=== PATIENT | female | born 1955 | race African-American/Black ===

== ENCOUNTER 2017-05-03 12:40 | Inpatient (IN) | payer MEDICARE, MEDICAID ==
[~2017-05-03] VITALS: Ht 170.2 cm; Wt 92.1 kg
[~2017-05-03 12:40] MED LIST: ACET-1465 PO; ATOR20TA65 PO; BENA1TAB19 PO; CLON0.1T PO; FAMO20TA8 PO; FLUT1DIS3 IH; HYDR-3927 PO; INSU100I7 SQ; IPRA3AMP9 INH; LORA0.5T2 PO; ONDA4TAB5 PO; SEVE800T8 PO; [UNRECOGNIZED DRUG - CODE] PO
[2017-05-03] MEDS ORDERED: ONDANSETRON HCL 4MG/2ML VIAL IV STA (13:20)
[2017-05-03] MEDS ORDERED: GENTAMICIN 80MG PREMIX 100 ML IV ONE (14:45)
[2017-05-03] MEDS ORDERED: VANCOMYCIN 1 G PREMIX 200 ML IV SCH (14:45)
[2017-05-03 15:50] LABS: BASOPHILS % 0.9 % (0.0-2.0); EOSINOPHILS % 0.9 % (0.0-5.0); HEMATOCRIT. 30.2 % (36.0-48.0); HEMOGLOBIN. 10.2 g/dL (12.0-16.0); LYMPHOCYTES % 17.4 % (20.0-50.0); MEAN CORPUSCULAR HEMOGLOBIN 30.3 pg (28.0-32.0); MEAN CORPUSCULAR VOLUME 89.2 fL (81.0-99.0); MEAN PLATELET VOLUME 7.6 fl (7.4-10.4); MONOCYTES % 6.7 % (2.0-8.0); NEUTROPHILS % 74.1 % (40.0-76.0); PLATELET 250 x1000/uL (130-400); RED BLOOD CELL COUNT 3.38 mill/uL (4.2-5.4); RED CELL DISTRIBUTION WIDTH 15.3 % (11.6-14.6)
[2017-05-03 15:56] LABS: INR 1.1; PARTIAL THROMBOPLASTIN TIME 33.1 sec (24.0-34.0); PROTHROMBIN TIME 11.5 sec
[2017-05-03 15:57] LABS: CARBON DIOXIDE 35 mEq/L (21-32); CHLORIDE 96 mEq/L (98-107)
[2017-05-03 16:04] LABS: TROPONIN I < 0.02 ng/mL (0.00-0.04)
[2017-05-03 18:50] LABS: CLARITY URINE CLOUDY (CLEAR); COLOR URINE YELLOW (YELLOW); GLUCOSE URINE NEGATIVE (NEGATIVE); KETONES URINE NEGATIVE (NEGATIVE); LEUKOCYTE ESTERASE URINE 3+ (NEGATIVE); NITRITE URINE NEGATIVE (NEGATIVE); OCCULT BLOOD URINE 2+ (NEGATIVE); PH URINE >=9.0 (4.5-8.0); PROTEIN URINE 2+ (NEGATIVE); SPECIFIC GRAVITY URINE 1.009 (1.005-1.030); UROBILINOGEN URINE 0.2 E.U./dL (0.2-1.0)
[2017-05-03 20:00] VITALS: BP 112/64
[2017-05-03] MEDS ORDERED: DESMOPRESSIN ACETATE 26 MCG in SODIUM CHLORIDE 0.9% 50 ML IV NR (21:00)
[2017-05-03 22:30] VITALS: BP 151/68
[2017-05-04] VITALS: BP 112/64
[2017-05-04 01:52] VITALS: BP 151/68
[2017-05-04 04:00] VITALS: BP 137/63
[2017-05-04 07:46] VITALS: BP 119/51
[2017-05-04] MEDS ORDERED: DEXTROSE 50% WATER 50ML SYRINGE IV PRN (08:00)
[2017-05-04] MEDS ORDERED: ACETAMINOPHEN 325MG TABLET PO PRN (08:15)
[2017-05-04] MEDS ORDERED: IPRATROPIUM/ALBUTEROL 0.5-3(2.5)MG/3ML NEB HHN PRN (08:15)
[2017-05-04] MEDS ORDERED: LORAZEPAM 0.5MG TABLET PO PRN (08:15)
[2017-05-04 08:50] LABS: BASOPHILS % 0.7 % (0.0-2.0); EOSINOPHILS % 2.2 % (0.0-5.0); HEMATOCRIT. 28.7 % (36.0-48.0); HEMOGLOBIN. 9.4 g/dL (12.0-16.0); MEAN CORPUSCULAR HEMOGLOBIN 29.5 pg (28.0-32.0); MEAN CORPUSCULAR VOLUME 89.8 fL (81.0-99.0); MEAN PLATELET VOLUME 7.7 fl (7.4-10.4); NEUTROPHILS % 73.1 % (40.0-76.0); PLATELET 244 x1000/uL (130-400); RED CELL DISTRIBUTION WIDTH 15.3 % (11.6-14.6)
[2017-05-04 08:58] LABS: INR 1.1; PARTIAL THROMBOPLASTIN TIME 27.3 sec (24.0-34.0); PROTHROMBIN TIME 11.4 sec
[2017-05-04] MEDS: BENAZEPRIL 20MG TABLET PO SCH (09:00)
[2017-05-04] MEDS ORDERED: FLUTICASONE PROPIONATE 50MCG/SPRAY BOTTLE BOTHNSTRLS SCH (09:00)
[2017-05-04] MEDS: AMLODIPINE 10MG TABLET PO SCH ×2 (09:00→14:52)
[2017-05-04 09:15] LABS: PHOSPHORUS 4.5 mg/dL (2.5-4.9)
[2017-05-04] MEDS: FAMOTIDINE 20MG TABLET PO SCH (09:19)
[2017-05-04] MEDS: BLOOD SUGAR DIAGNOSTIC STRIP TEST SCH ×3 (12:31→20:25)
[2017-05-04] MEDS: INSULIN LISPRO 100 UNITS/ML SUBCUT SCH ×3 (12:31→20:27)
[2017-05-04] MEDS: SEVELAMER CARBONATE 800 MG TABLET PO SCH ×2 (12:40→18:25)
[2017-05-04] MEDS: ONDANSETRON HCL 4MG/2ML VIAL IV PRN ×2 (13:23→20:39)
[2017-05-04] MEDS ORDERED: VANCOMYCIN 1,750 MG in DEXT 5% WATER 500 ML IV NR (16:00)
[2017-05-04 16:13] VITALS: BP 167/79
[2017-05-04] MEDS: ASPIRIN 81MG EC TABLET PO SCH (18:25)
[2017-05-04] MEDS: CLOPIDOGREL 75MG TABLET PO SCH (18:25)
[2017-05-04 20:00] VITALS: BP 179/84
[2017-05-04] MEDS: ATORVASTATIN CALCIUM 20MG TABLET PO SCH (20:39)
[2017-05-04] MEDS: CLONIDINE 0.1MG TABLET PO PRN (20:39)
[2017-05-04] MEDS: EPOETIN ALFA 10000UNITS/ML VIAL SUBCUT SCH (21:56)
[2017-05-05] VITALS: BP 107/61
[2017-05-05 04:00] VITALS: BP 144/70
[2017-05-05 06:23] LABS: BASOPHILS % 0.9 % (0.0-2.0); EOSINOPHILS % 3.7 % (0.0-5.0); HEMATOCRIT. 28.4 % (36.0-48.0); HEMOGLOBIN. 9.2 g/dL (12.0-16.0); MEAN CORPUSCULAR HEMOGLOBIN 29.6 pg (28.0-32.0); MEAN CORPUSCULAR VOLUME 91.4 fL (81.0-99.0); MEAN PLATELET VOLUME 7.8 fl (7.4-10.4); MONOCYTES % 8.4 % (2.0-8.0); PLATELET 238 x1000/uL (130-400); RED CELL DISTRIBUTION WIDTH 15.8 % (11.6-14.6)
[2017-05-05] MEDS: INSULIN LISPRO 100 UNITS/ML SUBCUT SCH ×4 (06:43→20:46)
[2017-05-05] MEDS: BLOOD SUGAR DIAGNOSTIC STRIP TEST SCH ×4 (06:43→20:20)
[2017-05-05 06:47] LABS: CHLORIDE 104 mEq/L (98-107)
[2017-05-05 06:52] LABS: CARBON DIOXIDE 27 mEq/L (21-32); CREATINE KINASE 18 IU/L (26-192); CREATINE KINASE MB FRACTION 0.6 ng/mL (0.5-3.6); HDL CHOLESTEROL 47 mg/dL (40-59); LDL CHOLESTEROL 32 mg/dL (5-100); TROPONIN I < 0.02 ng/mL (0.00-0.04)
[2017-05-05 07:35] VITALS: BP 117/66
[2017-05-05] MEDS: SEVELAMER CARBONATE 800 MG TABLET PO SCH ×3 (07:50→17:12)
[2017-05-05] MEDS: CLOPIDOGREL 75MG TABLET PO SCH (07:50)
[2017-05-05] MEDS: ASPIRIN 81MG EC TABLET PO SCH ×2 (07:50→16:39)
[2017-05-05] MEDS: AMLODIPINE 10MG TABLET PO SCH (07:51)
[2017-05-05] MEDS: FAMOTIDINE 20MG TABLET PO SCH (07:51)
[2017-05-05] MEDS: BENAZEPRIL 20MG TABLET PO SCH (07:51)
[2017-05-05 12:11] VITALS: BP 116/61
[2017-05-05] MEDS: HYDROCODONE/ACETAMINOPHEN 5/325MG TABLET PO PRN ×2 (14:01→20:52)
[2017-05-05] MEDS ORDERED: ZOSYN IVPB XX SCH (14:30)
[2017-05-05 16:03] VITALS: BP 121/73
[2017-05-05] MEDS: PIPERACILLIN/TAZ 3.375G PREMIX 50 ML IV SCH ×2 (16:39→23:24)
[2017-05-05 20:00] VITALS: BP 126/70
[2017-05-05] MEDS: ATORVASTATIN CALCIUM 20MG TABLET PO SCH (20:45)
[2017-05-06] VITALS: BP 115/64
[2017-05-06 04:00] VITALS: BP 125/70
[2017-05-06] MEDS: BLOOD SUGAR DIAGNOSTIC STRIP TEST SCH ×4 (06:15→21:25)
[2017-05-06] MEDS: INSULIN LISPRO 100 UNITS/ML SUBCUT SCH ×4 (06:15→21:28)
[2017-05-06 06:49] LABS: BASOPHILS % 0.7 % (0.0-2.0); EOSINOPHILS % 5.2 % (0.0-5.0); HEMATOCRIT. 26.7 % (36.0-48.0); HEMOGLOBIN. 8.7 g/dL (12.0-16.0); LYMPHOCYTES % 21.3 % (20.0-50.0); MEAN CORPUSCULAR HEMOGLOBIN 29.6 pg (28.0-32.0); MEAN PLATELET VOLUME 7.8 fl (7.4-10.4); MONOCYTES % 9.2 % (2.0-8.0); NEUTROPHILS % 63.6 % (40.0-76.0); PLATELET 211 x1000/uL (130-400); RED BLOOD CELL COUNT 2.93 mill/uL (4.2-5.4); RED CELL DISTRIBUTION WIDTH 15.7 % (11.6-14.6)
[2017-05-06 08:00] VITALS: BP 115/55
[2017-05-06 08:30] LABS: CARBON DIOXIDE 27 mEq/L (21-32); CHLORIDE 106 mEq/L (98-107); PHOSPHORUS 3.6 mg/dL (2.5-4.9)
[2017-05-06] MEDS: PIPERACILLIN/TAZ 3.375G PREMIX 50 ML IV SCH (08:34)
[2017-05-06] MEDS: SEVELAMER CARBONATE 800 MG TABLET PO SCH ×3 (08:37→16:35)
[2017-05-06] MEDS: CLOPIDOGREL 75MG TABLET PO SCH (08:38)
[2017-05-06] MEDS: BENAZEPRIL 20MG TABLET PO SCH (08:38)
[2017-05-06] MEDS: FAMOTIDINE 20MG TABLET PO SCH (08:39)
[2017-05-06] MEDS: AMLODIPINE 10MG TABLET PO SCH (08:39)
[2017-05-06] MEDS: ASPIRIN 81MG EC TABLET PO SCH ×2 (08:39→16:35)
[2017-05-06 12:00] VITALS: BP 117/57
[2017-05-06] MEDS: PIPERACILLIN/TAZ 2.25G PREMIX 50 ML IV SCH ×2 (15:05→21:26)
[2017-05-06 16:00] VITALS: BP 116/57
[2017-05-06 17:36] LABS: CLARITY URINE TURBID (CLEAR); COLOR URINE YELLOW (YELLOW); GLUCOSE URINE NEGATIVE (NEGATIVE); KETONES URINE NEGATIVE (NEGATIVE); LEUKOCYTE ESTERASE URINE 3+ (NEGATIVE); NITRITE URINE NEGATIVE (NEGATIVE); OCCULT BLOOD URINE 1+ (NEGATIVE); PH URINE 7.5 (4.5-8.0); PROTEIN URINE 3+ (NEGATIVE); SPECIFIC GRAVITY URINE 1.017 (1.005-1.030); UROBILINOGEN URINE 0.2 E.U./dL (0.2-1.0)
[2017-05-06 20:00] VITALS: BP 149/79
[2017-05-06] MEDS: ATORVASTATIN CALCIUM 20MG TABLET PO SCH (21:26)
[2017-05-07] VITALS: BP 136/65
[2017-05-07 04:00] VITALS: BP 139/76
[2017-05-07] MEDS: BLOOD SUGAR DIAGNOSTIC STRIP TEST SCH ×4 (06:50→20:34)
[2017-05-07] MEDS: INSULIN LISPRO 100 UNITS/ML SUBCUT SCH ×4 (06:51→20:28)
[2017-05-07 07:09] LABS: BASOPHILS % 0.6 % (0.0-2.0); EOSINOPHILS % 5.3 % (0.0-5.0); HEMATOCRIT. 26.5 % (36.0-48.0); HEMOGLOBIN. 8.8 g/dL (12.0-16.0); LYMPHOCYTES % 18.6 % (20.0-50.0); MEAN CORPUSCULAR HEMOGLOBIN 29.9 pg (28.0-32.0); MEAN CORPUSCULAR VOLUME 89.8 fL (81.0-99.0); MEAN PLATELET VOLUME 7.9 fl (7.4-10.4); NEUTROPHILS % 68.5 % (40.0-76.0); PLATELET 218 x1000/uL (130-400); RED BLOOD CELL COUNT 2.95 mill/uL (4.2-5.4); RED CELL DISTRIBUTION WIDTH 15.4 % (11.6-14.6)
[2017-05-07 08:00] VITALS: BP 150/59
[2017-05-07] MEDS: SEVELAMER CARBONATE 800 MG TABLET PO SCH ×3 (08:57→17:57)
[2017-05-07] MEDS: FAMOTIDINE 20MG TABLET PO SCH (11:11)
[2017-05-07] MEDS: ASPIRIN 81MG EC TABLET PO SCH ×2 (11:11→17:00)
[2017-05-07] MEDS: AMLODIPINE 10MG TABLET PO SCH (11:11)
[2017-05-07] MEDS: CLOPIDOGREL 75MG TABLET PO SCH (11:12)
[2017-05-07] MEDS: BENAZEPRIL 20MG TABLET PO SCH (11:13)
[2017-05-07] MEDS: PIPERACILLIN/TAZ 2.25G PREMIX 50 ML IV SCH (11:17)
[2017-05-07 12:00] VITALS: BP 143/83
[2017-05-07 16:00] VITALS: BP 156/81
[2017-05-07 16:05] VITALS: BP 128/73
[2017-05-07] MEDS: CLONIDINE 0.1MG TABLET PO PRN (18:14)
[2017-05-07] MEDS: ONDANSETRON HCL 4MG/2ML VIAL IV PRN (18:14)
[2017-05-07] MEDS: ATORVASTATIN CALCIUM 20MG TABLET PO SCH (20:26)
[2017-05-07] MEDS: EPOETIN ALFA 10000UNITS/ML VIAL SUBCUT SCH (20:29)
[2017-05-07] MEDS ORDERED: AMPICILLIN TRIHYDRATE PO SCH (21:00)
== END 2017-05-07 21:35 | disposition home health service (06) | DRG 391 ==
LOC: ER 12:58 → 8WST 14:44 → EDBEDREQ 14:59 → CANRESERV 16:49 → ENRESERV 16:49
PROVIDERS: ADMIT Internal Medicine; ATTEND Internal Medicine
PROC: 02HV33Z Insertion of Infusion Device into Superior Vena Cava, Percutaneous Approach (ICD-10-PCS; principal; 2017-05-03)
PROC: B5181ZA Fluoroscopy of Superior Vena Cava using Low Osmolar Contrast, Guidance (ICD-10-PCS; 2017-05-03)
PROC: B548ZZA Ultrasonography of Superior Vena Cava, Guidance (ICD-10-PCS; 2017-05-03)
PROC: 5A1D60Z (ICD-10-PCS; 2017-05-04)
DX: K52.9 Noninfective gastroenteritis and colitis, unspecified (principal); N18.6 End stage renal disease; I13.11 Hypertensive heart and chronic kidney disease without heart failure, with stage 5 chronic kidney disease, or end stage renal disease; N39.0 Urinary tract infection, site not specified; E66.01 Morbid (severe) obesity due to excess calories; Z99.2 Dependence on renal dialysis; G83.10 Monoplegia of lower limb affecting unspecified side; D63.8 Anemia in other chronic diseases classified elsewhere; E11.22 Type 2 diabetes mellitus with diabetic chronic kidney disease; M19.90 Unspecified osteoarthritis, unspecified site; I95.9 Hypotension, unspecified; E11.51 Type 2 diabetes mellitus with diabetic peripheral angiopathy without gangrene; K21.9 Gastro-esophageal reflux disease without esophagitis; E78.00 Pure hypercholesterolemia, unspecified; E11.40 Type 2 diabetes mellitus with diabetic neuropathy, unspecified; J44.9 Chronic obstructive pulmonary disease, unspecified; G89.29 Other chronic pain; M54.9 Dorsalgia, unspecified; M25.562 Pain in left knee; M10.9 Gout, unspecified; F41.9 Anxiety disorder, unspecified; E78.5 Hyperlipidemia, unspecified; I25.10 Atherosclerotic heart disease of native coronary artery without angina pectoris; I25.2 Old myocardial infarction; Z79.4 Long term (current) use of insulin; Z79.82 Long term (current) use of aspirin; Z87.11 Personal history of peptic ulcer disease; Z87.891 Personal history of nicotine dependence; Z95.5 Presence of coronary angioplasty implant and graft; Z99.3 Dependence on wheelchair; Z87.81 Personal history of (healed) traumatic fracture; Z68.31 Body mass index [BMI] 31.0-31.9, adult; Y83.8 Other surgical procedures as the cause of abnormal reaction of the patient, or of later complication, without mention of misadventure at the time of the procedure; Y92.89 Other specified places as the place of occurrence of the external cause
CPT/HCPCS: 36415; 36569; 71010; 76937; 77001; 80048; 80053; 80061; 80069; 80076; 80202; 81001; 82550; 82553; 82962; 83605; 83690; 83735; 84100; 84484; 84550; 85025; 85379; 85610; 85651; 85730; 87040; 87077; 87086; 93005; 93970; 96365; 96368; 96375; 99285; C1725; J0885; J1580; J1815; J2405; J2543; J2597; J3370; J7030; J7040; J7060

== ENCOUNTER → 2017-09-20 | Outpatient (CLI) | payer MEDICARE, MEDICAID ==
[~2017-09-20] MED LIST changes: +AMLO-337 PO; +DUONEB3 ML INH; -HYDR-3927 PO; +HYDR-4001 PO; -IPRA3AMP9 INH; -[UNRECOGNIZED DRUG - CODE] PO
== END | disposition home or self-care (01) ==
LOC: MAMMO 09:30
PROVIDERS: ATTEND Specialist
DX: Z12.31 Encounter for screening mammogram for malignant neoplasm of breast (principal)
CPT/HCPCS: G0202

== ENCOUNTER → 2019-01-28 | Outpatient (CLI) | payer MEDICARE, MEDICAID | END | disposition home or self-care (01) | LOC: RAD 10:54 | PROVIDERS: ATTEND Specialist | DX: Z01.818 Encounter for other preprocedural examination (principal); I11.9 Hypertensive heart disease without heart failure; R91.8 Other nonspecific abnormal finding of lung field | CPT/HCPCS: 71045 ==

== ENCOUNTER 2019-02-17 05:52 | Inpatient (IN) | payer MEDICARE, MEDICAID ==
[~2019-02-17] VITALS: Ht 165.1 cm; Wt 109.8 kg
[2019-02-17] VITALS (12 sets, daily range): BP systolic 79–110; BP diastolic 62–72
[2019-02-17] MEDS ORDERED: SODIUM CHLORIDE 0.9% 500 ML IV ONE (07:00)
[2019-02-17] MEDS ORDERED: BUPIVACAINE/EPINEPH/PF 0.25%/0.0005 10ML ONE (09:24)
[2019-02-17] MEDS ORDERED: NORMAL SALINE 0.9% 10 ML SYR ONE (09:25)
[2019-02-17] MEDS ORDERED: BACITRACIN 50,000 UNITS/VIAL ONE (09:25)
[2019-02-17] MEDS ORDERED: ROPIVACAINE HCL 10MG/ML 20 ML VIAL EPI ONE (09:47)
[2019-02-17] MEDS ORDERED: ACETAMINOPHEN 325MG TABLET PO PRN (10:15)
[2019-02-17] MEDS ORDERED: ONDANSETRON HCL 4MG TABLET PO PRN (10:15)
[2019-02-17] MEDS ORDERED: HYDROCODONE/ACETAMINOPHEN 5/325MG TABLET PO PRN ×2 (10:15)
[2019-02-17] MEDS ORDERED: ALBUTEROL 90MCG/PUFF 17GM INHALER INH ONE (11:37)
[2019-02-17] MEDS ORDERED: RACEPINEPHRINE 2.25% 0.5ML NEB VIAL INH PRN (11:45)
[2019-02-17] MEDS ORDERED: ALBUTEROL (0.083%) 2.5MG/3ML NEB ONE (13:02)
[2019-02-17 17:39] LABS: BG BASE EXCESS 2.4 mmol/L (-2.0-2.0); BG CARBOXYHEMOGLOBIN 0.7 % (0.5-1.5); BG DEOXYHEMOGLOBIN 2.2 % (0.0-5.0); BG FRACTION INSPIRED OXYGEN 70; BG HCO3 ACT 27.6 mmol/L (22.0-26.0); BG METHEMOGLOBIN 0.2 % (0.0-1.5); BG OXYGEN SATURATION 97.8 % (92.0-98.5); BG OXYHEMOGLOBIN 96.9 % (94.0-97.0); BG PH 7.405 (7.350-7.450); BG PO2 103.4 mmHg (75.0-100.0); BG PRESSURE SUPPORT 10; BG SAMPLE SITE LEFT RADIAL; BG TIDAL VOLUME(mL) 500 mL; BG TOTAL HEMOGLOBIN 12.2 g/dL (12.0-18.0); BG VENT MODE VENT - SIMV; BG VENT RATE 12 set
[2019-02-17] MEDS ORDERED: SODIUM CHLORIDE 0.9% 1,000 ML IV ONE (19:36)
[2019-02-17] MEDS ORDERED: ONDANSETRON HCL 4MG/2ML INJ IV PRN (19:45)
[2019-02-17] MEDS ORDERED: MORPHINE SULFATE 4 MG/ML CPJ (NOT FOR IM USE) IV PRN (19:45)
[2019-02-17] MEDS ORDERED: HYDROMORPHONE HCL/PF 2MG/ML CPJ IV PRN (19:45)
[2019-02-17] MEDS ORDERED: PROPOFOL 10MG/ML 100ML 100 ML IV PRN (20:30)
[2019-02-17] MEDS ORDERED: ALBUTEROL (0.083%) 2.5MG/3ML NEB HHN PRN (20:30)
[2019-02-17] MEDS: DOCUSATE SODIUM 100MG CAPSULE PO SCH (20:43)
[2019-02-17] MEDS: MORPHINE SULFATE 4 MG/ML CPJ (NOT FOR IM USE) IV PRN (20:49)
[2019-02-17] MEDS: IPRATROPIUM/ALBUTEROL 0.5-3(2.5)MG/3ML NEB HHN SCH (20:59)
[2019-02-17] MEDS ORDERED: IPRATROPIUM/ALBUTEROL 0.5-3(2.5)MG/3ML NEB HHN PRN (21:00)
[2019-02-17 21:29] LABS: HEMOGLOBIN. 11.1 g/dL (12.0-16.0); MEAN CORPUSCULAR HEMOGLOBIN 32.1 pg (28.0-32.0); MEAN CORPUSCULAR VOLUME 95.5 fL (81.0-99.0); MEAN PLATELET VOLUME 8.2 fl (7.4-10.4); PLATELET 156 x1000/uL (130-400); RED BLOOD CELL COUNT 3.45 mill/uL (4.2-5.4); RED CELL DISTRIBUTION WIDTH 15.1 % (11.6-14.6)
[2019-02-17 21:48] LABS: CHLORIDE 98 mEq/L (98-107)
[2019-02-17 21:58] LABS: PLATELET ESTIMATE NORMAL
[2019-02-17] MEDS: PIPERACILLIN/TAZ 2.25G PREMIX 50 ML IV SCH (22:59)
[2019-02-18] VITALS (47 sets, daily range): BP systolic 87–143; BP diastolic 33–77
[2019-02-18] MEDS: PIPERACILLIN/TAZ 2.25G PREMIX 50 ML IV SCH ×3 (06:31→22:11)
[2019-02-18] MEDS: MORPHINE SULFATE 4 MG/ML CPJ (NOT FOR IM USE) IV PRN ×2 (07:50→13:31)
[2019-02-18] MEDS: IPRATROPIUM/ALBUTEROL 0.5-3(2.5)MG/3ML NEB HHN SCH ×4 (08:32→21:05)
[2019-02-18] MEDS: DOCUSATE SODIUM 100MG CAPSULE PO SCH ×2 (09:00→17:00)
[2019-02-18] MEDS: METHYLPREDNISOLONE SOD SUCC 40 MG/ML VIAL IV SCH (19:13)
[2019-02-19] VITALS (76 sets, daily range): BP systolic 60–145; BP diastolic 23–103
[2019-02-19] MEDS: IPRATROPIUM/ALBUTEROL 0.5-3(2.5)MG/3ML NEB HHN SCH ×5 (00:28→19:59)
[2019-02-19] MEDS: METHYLPREDNISOLONE SOD SUCC 40 MG/ML VIAL IV SCH ×3 (02:59→18:36)
[2019-02-19] MEDS: PIPERACILLIN/TAZ 2.25G PREMIX 50 ML IV SCH ×3 (05:38→22:09)
[2019-02-19] MEDS: MORPHINE SULFATE 4 MG/ML CPJ (NOT FOR IM USE) IV PRN ×3 (06:49→23:21)
[2019-02-19] MEDS ORDERED: RACEPINEPHRINE 2.25% 0.5ML NEB VIAL HHN SCH (08:30)
[2019-02-19] MEDS ORDERED: DEXTROSE 50% WATER 50ML SYRINGE IV PRN (09:00)
[2019-02-19] MEDS: DOCUSATE SODIUM 100MG CAPSULE PO SCH ×2 (09:00→17:00)
[2019-02-19] MEDS: BLOOD SUGAR DIAGNOSTIC STRIP TEST SCH ×4 (09:17→22:18)
[2019-02-19] MEDS: INSULIN LISPRO 100 UNITS/ML SUBCUT SCH ×4 (09:18→22:20)
[2019-02-19 15:15] LABS: CHLORIDE 95 mEq/L (98-107); HEMATOCRIT. 32.2 % (36.0-48.0); HEMOGLOBIN. 10.7 g/dL (12.0-16.0); MEAN CORPUSCULAR HEMOGLOBIN 32.3 pg (28.0-32.0); MEAN CORPUSCULAR VOLUME 96.8 fL (81.0-99.0); MEAN PLATELET VOLUME 8.6 fl (7.4-10.4); PLATELET 171 x1000/uL (130-400); RED BLOOD CELL COUNT 3.32 mill/uL (4.2-5.4); RED CELL DISTRIBUTION WIDTH 15.2 % (11.6-14.6)
[2019-02-19 15:59] LABS: PLATELET ESTIMATE NORMAL
[2019-02-20] VITALS (25 sets, daily range): BP systolic 86–152; BP diastolic 40–97
[2019-02-20] MEDS: METHYLPREDNISOLONE SOD SUCC 40 MG/ML VIAL IV SCH ×2 (02:25→08:59)
[2019-02-20] MEDS: BLOOD SUGAR DIAGNOSTIC STRIP TEST SCH ×4 (06:07→20:46)
[2019-02-20] MEDS: PIPERACILLIN/TAZ 2.25G PREMIX 50 ML IV SCH ×3 (06:07→21:21)
[2019-02-20] MEDS: INSULIN LISPRO 100 UNITS/ML SUBCUT SCH ×4 (06:16→21:40)
[2019-02-20] MEDS: IPRATROPIUM/ALBUTEROL 0.5-3(2.5)MG/3ML NEB HHN SCH ×4 (07:47→21:04)
[2019-02-20] MEDS: DOCUSATE SODIUM 100MG CAPSULE PO SCH ×2 (08:59→17:00)
[2019-02-20] MEDS: MORPHINE SULFATE 4 MG/ML CPJ (NOT FOR IM USE) IV PRN ×2 (09:30→09:33)
[2019-02-20] MEDS ORDERED: METHYLPREDNISOLONE SOD SUCC 40 MG/ML VIAL IV SCH (18:00)
[2019-02-21] VITALS: BP 112/62
[2019-02-21] MEDS: PREDNISONE 20MG TABLET PO SCH ×2 (03:06→14:02)
[2019-02-21 04:00] VITALS: BP 108/62
[2019-02-21] MEDS: PIPERACILLIN/TAZ 2.25G PREMIX 50 ML IV SCH (06:38)
[2019-02-21] MEDS: BLOOD SUGAR DIAGNOSTIC STRIP TEST SCH (07:02)
[2019-02-21] MEDS: DOCUSATE SODIUM 100MG CAPSULE PO SCH (08:53)
[2019-02-21] MEDS: INSULIN LISPRO 100 UNITS/ML SUBCUT SCH (08:58)
[2019-02-21] MEDS: IPRATROPIUM/ALBUTEROL 0.5-3(2.5)MG/3ML NEB HHN SCH ×2 (09:21→12:30)
[2019-02-21 09:58] VITALS: BP 106/61
[2019-02-21 12:00] VITALS: BP 111/63
[2019-02-21 13:28] VITALS: BP 111/63
[2019-02-21] MEDS ORDERED: CEFTRIAXONE 1 G PREMIX 50 ML IV SCH (17:00)
[2019-04-10] MEDS ORDERED: METR-167 MT (15:37)
[2019-04-10] MEDS ORDERED: LEVO250T58 MT (15:37)
[2019-04-10] MEDS ORDERED: CHOL500010 MT (15:37)
== END 2019-02-21 14:12 | disposition home health service (06) | DRG 981 ==
LOC: OR 05:52 → MICUNO 20:38 → 6EST 02-20 16:12
PROVIDERS: ADMIT Internal Medicine; ATTEND Orthopaedic Surgery
PROC: 5A1945Z Respiratory Ventilation, 24-96 Consecutive Hours (ICD-10-PCS; principal; 2019-02-17)
PROC: 01S40ZZ Reposition Ulnar Nerve, Open Approach (ICD-10-PCS; 2019-02-17)
PROC: 5A1D70Z Performance of Urinary Filtration, Intermittent, Less than 6 Hours Per Day (ICD-10-PCS; 2019-02-19)
PROC: 5A1D70Z Performance of Urinary Filtration, Intermittent, Less than 6 Hours Per Day (ICD-10-PCS; 2019-02-21)
DX: J95.821 Acute postprocedural respiratory failure (principal); N18.6 End stage renal disease; I13.2 Hypertensive heart and chronic kidney disease with heart failure and with stage 5 chronic kidney disease, or end stage renal disease; Z68.41 Body mass index [BMI] 40.0-44.9, adult; G56.23 Lesion of ulnar nerve, bilateral upper limbs; E87.6 Hypokalemia; M13.0 Polyarthritis, unspecified; I25.10 Atherosclerotic heart disease of native coronary artery without angina pectoris; E11.319 Type 2 diabetes mellitus with unspecified diabetic retinopathy without macular edema; E11.22 Type 2 diabetes mellitus with diabetic chronic kidney disease; E11.65 Type 2 diabetes mellitus with hyperglycemia; E11.42 Type 2 diabetes mellitus with diabetic polyneuropathy; E11.51 Type 2 diabetes mellitus with diabetic peripheral angiopathy without gangrene; D64.9 Anemia, unspecified; I50.9 Heart failure, unspecified; J44.9 Chronic obstructive pulmonary disease, unspecified; J98.01 Acute bronchospasm; K80.20 Calculus of gallbladder without cholecystitis without obstruction; E66.9 Obesity, unspecified; E78.00 Pure hypercholesterolemia, unspecified; E78.5 Hyperlipidemia, unspecified; H91.90 Unspecified hearing loss, unspecified ear; F17.210 Nicotine dependence, cigarettes, uncomplicated; I25.2 Old myocardial infarction; Z78.1 Physical restraint status; Z87.01 Personal history of pneumonia (recurrent); Z87.11 Personal history of peptic ulcer disease; Z88.6 Allergy status to analgesic agent; Z95.5 Presence of coronary angioplasty implant and graft; Z99.2 Dependence on renal dialysis
CPT/HCPCS: 36415; 36600; 71045; 80048; 80076; 82248; 82375; 82805; 82962; 83735; 84100; 87070; 87077; 87186; 92610; 93005; 94640; 97162; 97167; 97530; A4565; J0171; J0696; J1815; J2270; J2543; J2795; J2920; J3490; J7040; J7050; J7512; J7611; J7620

== ENCOUNTER → 2019-03-02 | Outpatient (CLI) | payer MEDICARE, MEDICAID ==
[~2019-03-02] MED LIST changes: -ACET-1465 PO; -AMLO-337 PO; -ATOR20TA65 PO; -BENA1TAB19 PO; -CLON0.1T PO; -DUONEB3 ML INH; -FLUT1DIS3 IH; -HYDR-4001 PO; -LORA0.5T2 PO; -ONDA4TAB5 PO; -SEVE800T8 PO
== END | disposition home or self-care (01) ==
LOC: RAD 08:03
PROVIDERS: ATTEND Podiatrist Foot & Ankle Surgery
DX: M19.071 Primary osteoarthritis, right ankle and foot (principal)
CPT/HCPCS: 73610; 73630

== ENCOUNTER 2019-03-13 19:55 | Inpatient (IN) | payer MEDICARE, MEDICAID ==
[~2019-03-13] VITALS: Ht 162.6 cm; Wt 103.9 kg
[2019-03-13] MEDS ORDERED: ONDANSETRON HCL 4MG/2ML INJ IV STA (20:49)
[2019-03-13] MEDS ORDERED: SODIUM CHLORIDE 0.9% 1000ML BAG (SEPSIS BOLUS) IV ONE (21:00)
[2019-03-13] MEDS ORDERED: PIPERACILLIN/TAZ 3.375G PREMIX 50 ML IV ONE (21:00)
[2019-03-13 21:01] LABS: BASOPHILS % 1.5 % (0.0-2.0); EOSINOPHILS % 0.8 % (0.0-5.0); HEMATOCRIT. 37.4 % (36.0-48.0); HEMOGLOBIN. 12.3 g/dL (12.0-16.0); LYMPHOCYTES % 33.3 % (20.0-50.0); MEAN CORPUSCULAR HEMOGLOBIN 31.7 pg (28.0-32.0); MEAN CORPUSCULAR VOLUME 96.8 fL (81.0-99.0); MONOCYTES % 9.8 % (2.0-8.0); NEUTROPHILS % 54.6 % (40.0-76.0); PLATELET 228 x1000/uL (130-400); RED BLOOD CELL COUNT 3.87 mill/uL (4.2-5.4); RED CELL DISTRIBUTION WIDTH 16.5 % (11.6-14.6)
[2019-03-13 21:04] LABS: CHLORIDE 94 mEq/L (98-107); INR 1.1; PROTHROMBIN TIME 11.8 sec (9.6-11.0)
[2019-03-13] MEDS ORDERED: MORPHINE SULFATE 4 MG/ML CPJ (NOT FOR IM USE) IV ONE (21:15)
[2019-03-13] MEDS ORDERED: NOREPINEPHRINE 4MG/250ML PMX 250 ML IV NR (21:15)
[2019-03-13] MEDS ORDERED: NOREPINEPHRINE 4 MG in DEXT 5% WATER 246 ML IV ONE (21:15)
[2019-03-13] MEDS ORDERED: VANCOMYCIN 1 G PREMIX 200 ML IV SCH (21:30)
[2019-03-13] MEDS ORDERED: ASPIRIN 325MG TABLET PO NR (23:15)
[2019-03-14] VITALS (95 sets, daily range): BP systolic 78–151; BP diastolic 30–76
[2019-03-14 01:17] LABS: CLARITY URINE CLEAR (CLEAR); COLOR URINE YELLOW (YELLOW); KETONES URINE NEGATIVE (NEGATIVE); LEUKOCYTE ESTERASE URINE NEGATIVE (NEGATIVE); NITRITE URINE NEGATIVE (NEGATIVE); OCCULT BLOOD URINE NEGATIVE (NEGATIVE); PH URINE 5.5 (4.5-8.0); PROTEIN URINE NEGATIVE (NEGATIVE); SPECIFIC GRAVITY URINE 1.022 (1.005-1.030); UROBILINOGEN URINE 0.2 E.U./dL (0.2-1.0)
[2019-03-14] MEDS ORDERED: NOREPINEPHRINE 16 MG in DEXT 5% WATER 234 ML IV PRN (02:45)
[2019-03-14] MEDS ORDERED: ACETAMINOPHEN 325MG TABLET PO PRN (02:45)
[2019-03-14] MEDS ORDERED: MAGNESIUM HYDROXIDE 400MG/5ML 30ML UDC PO PRN (03:00)
[2019-03-14] MEDS ORDERED: DEXTROSE 50% WATER 50ML SYRINGE IV PRN (03:00)
[2019-03-14] MEDS ORDERED: SODIUM CHLORIDE 0.9% 1000ML BAG (SEPSIS BOLUS) IV NR (03:30)
[2019-03-14 05:39] LABS: BASOPHILS % 1.1 % (0.0-2.0); EOSINOPHILS % 1.2 % (0.0-5.0); HEMATOCRIT. 39.9 % (36.0-48.0); LYMPHOCYTES % 27.1 % (20.0-50.0); MEAN CORPUSCULAR HEMOGLOBIN 31.7 pg (28.0-32.0); MEAN CORPUSCULAR VOLUME 97.7 fL (81.0-99.0); MEAN PLATELET VOLUME 8.8 fl (7.4-10.4); MONOCYTES % 11.6 % (2.0-8.0); PLATELET 212 x1000/uL (130-400); RED BLOOD CELL COUNT 4.08 mill/uL (4.2-5.4); RED CELL DISTRIBUTION WIDTH 16.3 % (11.6-14.6)
[2019-03-14] MEDS: BLOOD SUGAR DIAGNOSTIC STRIP TEST SCH ×4 (06:00→20:33)
[2019-03-14] MEDS ORDERED: PIPERACILLIN/TAZOBACTAM 3.375GM/50ML PREMIX IV SCH (06:00)
[2019-03-14 06:13] LABS: CHLORIDE 95 mEq/L (98-107)
[2019-03-14] MEDS: INSULIN LISPRO 100 UNITS/ML SUBCUT SCH ×4 (06:13→20:33)
[2019-03-14 06:24] LABS: PHOSPHORUS 5.8 mg/dL (2.5-4.9)
[2019-03-14 06:27] LABS: CREATINE KINASE 55 IU/L (26-192)
[2019-03-14] MEDS: PIPERACILLIN/TAZ 2.25G PREMIX 50 ML IV SCH ×2 (09:07→20:32)
[2019-03-14] MEDS: MIDODRINE HCL 5MG TABLET PO SCH ×2 (13:04→18:17)
[2019-03-15] VITALS (95 sets, daily range): BP systolic 79–153; BP diastolic 36–109
[2019-03-15 04:49] LABS: BASOPHILS % 0.9 % (0.0-2.0); EOSINOPHILS % 2.2 % (0.0-5.0); HEMATOCRIT. 36.3 % (36.0-48.0); LYMPHOCYTES % 20.2 % (20.0-50.0); MEAN CORPUSCULAR HEMOGLOBIN 31.7 pg (28.0-32.0); MEAN CORPUSCULAR VOLUME 96.1 fL (81.0-99.0); MEAN PLATELET VOLUME 8.4 fl (7.4-10.4); MONOCYTES % 11.2 % (2.0-8.0); NEUTROPHILS % 65.5 % (40.0-76.0); PLATELET 196 x1000/uL (130-400); RED BLOOD CELL COUNT 3.78 mill/uL (4.2-5.4); RED CELL DISTRIBUTION WIDTH 16.1 % (11.6-14.6)
[2019-03-15] MEDS: BLOOD SUGAR DIAGNOSTIC STRIP TEST SCH ×4 (05:51→22:05)
[2019-03-15] MEDS: INSULIN LISPRO 100 UNITS/ML SUBCUT SCH ×4 (06:08→22:05)
[2019-03-15] MEDS: ASPIRIN 81MG EC TABLET PO SCH (08:37)
[2019-03-15] MEDS: PIPERACILLIN/TAZ 2.25G PREMIX 50 ML IV SCH ×2 (08:37→21:28)
[2019-03-15] MEDS: MIDODRINE HCL 5MG TABLET PO SCH ×3 (08:38→17:07)
[2019-03-15] MEDS ORDERED: VANCOMYCIN 1 G PREMIX 200 ML IV SCH (13:00)
[2019-03-15] MEDS: ATORVASTATIN CALCIUM 10MG TABLET PO SCH (21:28)
[2019-03-16] VITALS (26 sets, daily range): BP systolic 83–164; BP diastolic 47–77
[2019-03-16 05:40] LABS: BASOPHILS % 0.7 % (0.0-2.0); EOSINOPHILS % 1.8 % (0.0-5.0); HEMATOCRIT. 33.8 % (36.0-48.0); HEMOGLOBIN. 11.2 g/dL (12.0-16.0); LYMPHOCYTES % 19.7 % (20.0-50.0); MEAN CORPUSCULAR HEMOGLOBIN 31.5 pg (28.0-32.0); MEAN CORPUSCULAR VOLUME 95.4 fL (81.0-99.0); MEAN PLATELET VOLUME 8.1 fl (7.4-10.4); MONOCYTES % 10.5 % (2.0-8.0); NEUTROPHILS % 67.3 % (40.0-76.0); PLATELET 154 x1000/uL (130-400); RED BLOOD CELL COUNT 3.54 mill/uL (4.2-5.4); RED CELL DISTRIBUTION WIDTH 15.8 % (11.6-14.6)
[2019-03-16] MEDS: INSULIN LISPRO 100 UNITS/ML SUBCUT SCH ×5 (08:00→21:00)
[2019-03-16] MEDS: BLOOD SUGAR DIAGNOSTIC STRIP TEST SCH ×5 (08:00→21:24)
[2019-03-16] MEDS: PIPERACILLIN/TAZ 2.25G PREMIX 50 ML IV SCH ×2 (08:40→21:24)
[2019-03-16] MEDS: ASPIRIN 81MG EC TABLET PO SCH (08:40)
[2019-03-16] MEDS: MIDODRINE HCL 5MG TABLET PO SCH ×3 (08:40→17:39)
[2019-03-16] MEDS ORDERED: MAGNESIUM CITRATE 300ML SOLUTION PO NR (09:30)
[2019-03-16] MEDS: ATORVASTATIN CALCIUM 10MG TABLET PO SCH (20:53)
[2019-03-16] MEDS: FAMOTIDINE 20MG TABLET PO SCH (20:53)
[2019-03-17] VITALS (7 sets, daily range): BP systolic 109–144; BP diastolic 60–75
[2019-03-17] MEDS: BLOOD SUGAR DIAGNOSTIC STRIP TEST SCH ×3 (06:25→17:59)
[2019-03-17] MEDS: INSULIN LISPRO 100 UNITS/ML SUBCUT SCH ×4 (06:25→20:40)
[2019-03-17 07:12] LABS: EOSINOPHILS % 1.8 % (0.0-5.0); HEMATOCRIT. 36.7 % (36.0-48.0); HEMOGLOBIN. 12.1 g/dL (12.0-16.0); LYMPHOCYTES % 19.2 % (20.0-50.0); MEAN CORPUSCULAR HEMOGLOBIN 31.5 pg (28.0-32.0); MEAN PLATELET VOLUME 8.4 fl (7.4-10.4); MONOCYTES % 11.5 % (2.0-8.0); NEUTROPHILS % 66.5 % (40.0-76.0); PLATELET 198 x1000/uL (130-400); RED BLOOD CELL COUNT 3.82 mill/uL (4.2-5.4); RED CELL DISTRIBUTION WIDTH 15.9 % (11.6-14.6)
[2019-03-17] MEDS: MIDODRINE HCL 5MG TABLET PO SCH ×4 (08:31→17:00)
[2019-03-17] MEDS: PIPERACILLIN/TAZ 2.25G PREMIX 50 ML IV SCH (08:52)
[2019-03-17] MEDS: ASPIRIN 81MG EC TABLET PO SCH (09:00)
[2019-03-17] MEDS: FAMOTIDINE 20MG TABLET PO SCH (20:14)
[2019-03-17] MEDS: ATORVASTATIN CALCIUM 10MG TABLET PO SCH (20:14)
== END 2019-03-17 21:40 | disposition home or self-care (01) | DRG 871 ==
LOC: ER 19:55 → MICUNO 22:58 → EDBEDREQTM 23:00 → EDBEDREQ 23:00 → EDBEDREQSVC 23:57 → ENRESERV 23:59 → 8WST 03-16 16:03
PROVIDERS: ADMIT Internal Medicine; ATTEND Internal Medicine
PROC: B54BZZA Ultrasonography of Right Lower Extremity Veins, Guidance (ICD-10-PCS; principal; 2019-03-13)
PROC: 06HY33Z Insertion of Infusion Device into Lower Vein, Percutaneous Approach (ICD-10-PCS; 2019-03-13)
PROC: 5A1D70Z Performance of Urinary Filtration, Intermittent, Less than 6 Hours Per Day (ICD-10-PCS; 2019-03-15)
PROC: 5A1D70Z Performance of Urinary Filtration, Intermittent, Less than 6 Hours Per Day (ICD-10-PCS; 2019-03-17)
DX: A41.9 Sepsis, unspecified organism (principal); N18.6 End stage renal disease; R65.21 Severe sepsis with septic shock; I13.2 Hypertensive heart and chronic kidney disease with heart failure and with stage 5 chronic kidney disease, or end stage renal disease; T62.8X1A Toxic effect of other specified noxious substances eaten as food, accidental (unintentional), initial encounter; E11.22 Type 2 diabetes mellitus with diabetic chronic kidney disease; K52.9 Noninfective gastroenteritis and colitis, unspecified; E11.42 Type 2 diabetes mellitus with diabetic polyneuropathy; J44.9 Chronic obstructive pulmonary disease, unspecified; E11.319 Type 2 diabetes mellitus with unspecified diabetic retinopathy without macular edema; E11.621 Type 2 diabetes mellitus with foot ulcer; E78.5 Hyperlipidemia, unspecified; E86.9 Volume depletion, unspecified; G47.33 Obstructive sleep apnea (adult) (pediatric); I25.10 Atherosclerotic heart disease of native coronary artery without angina pectoris; D64.9 Anemia, unspecified; E66.9 Obesity, unspecified; I45.10 Unspecified right bundle-branch block; I50.9 Heart failure, unspecified; K80.20 Calculus of gallbladder without cholecystitis without obstruction; L97.529 Non-pressure chronic ulcer of other part of left foot with unspecified severity; Z79.4 Long term (current) use of insulin; Z79.82 Long term (current) use of aspirin; Z87.891 Personal history of nicotine dependence; Z95.5 Presence of coronary angioplasty implant and graft; Z99.2 Dependence on renal dialysis; I25.2 Old myocardial infarction; Z99.3 Dependence on wheelchair; Z88.8 Allergy status to other drugs, medicaments and biological substances; Z79.899 Other long term (current) drug therapy; Z68.39 Body mass index [BMI] 39.0-39.9, adult; Z74.01 Bed confinement status; Z87.81 Personal history of (healed) traumatic fracture; Y92.89 Other specified places as the place of occurrence of the external cause
CPT/HCPCS: 36415; 36556; 71045; 74018; 80048; 80202; 82550; 82553; 82962; 83036; 83605; 83735; 83880; 84100; 84145; 84484; 93005; 93306; 93970; 99291; A6261; J1815; J2270; J2405; J2543; J3370; J3490; J7030; J7040; J7050; J7060

== ENCOUNTER 2019-03-31 05:13 | Inpatient (IN) | payer MEDICARE, MEDICAID ==
[~2019-03-31] VITALS: Ht 167.6 cm; Wt 103.0 kg
[2019-03-31] MEDS ORDERED: FAMOTIDINE 20MG/2ML VIAL IV STA (06:21)
[2019-03-31] MEDS ORDERED: ONDANSETRON HCL 4MG/2ML INJ IV STA (06:21)
[2019-03-31 06:50] LABS: CHLORIDE 97 mEq/L (98-107)
[2019-03-31 06:51] LABS: INR 1.1; PROTHROMBIN TIME 11.4 sec (9.6-11.0)
[2019-03-31 06:59] LABS: HEMATOCRIT. 37.2 % (36.0-48.0); HEMOGLOBIN. 12.2 g/dL (12.0-16.0); LYMPHOCYTES % 14.6 % (20.0-50.0); MEAN CORPUSCULAR HEMOGLOBIN 31.2 pg (28.0-32.0); MEAN CORPUSCULAR VOLUME 94.9 fL (81.0-99.0); MEAN PLATELET VOLUME 8.6 fl (7.4-10.4); MONOCYTES % 5.4 % (2.0-8.0); PHOSPHORUS 4.4 mg/dL (2.5-4.9); PLATELET 191 x1000/uL (130-400); RED BLOOD CELL COUNT 3.92 mill/uL (4.2-5.4); RED CELL DISTRIBUTION WIDTH 15.8 % (11.6-14.6)
[2019-03-31] MEDS ORDERED: MORPHINE SULFATE 4 MG/ML CPJ (NOT FOR IM USE) IV ONE (07:00)
[2019-03-31] MEDS ORDERED: SODIUM CHLORIDE 0.9% 1,000 ML IV ONE (07:37)
[2019-03-31] MEDS ORDERED: PIPERACILLIN/TAZ 3.375G PREMIX 50 ML IV ONE (07:45)
[2019-03-31 12:00] VITALS: BP 97/51
[2019-03-31] MEDS ORDERED: ONDANSETRON HCL 4MG/2ML INJ IV PRN (13:00)
[2019-03-31] MEDS ORDERED: VANCOMYCIN 1 G PREMIX 200 ML IV SCH (13:00)
[2019-03-31] MEDS ORDERED: METRONIDAZOLE 500 MG PREMIX 100 ML IV SCH ×2 (13:00→18:00)
[2019-03-31] MEDS ORDERED: LEVOFLOXACIN 500MG PREMIX 100 ML IV SCH ×2 (13:30→16:00)
[2019-03-31 14:16] VITALS: BP 163/79
[2019-03-31] MEDS ORDERED: VANCOMYCIN 2,000 MG in DEXT 5% WATER 500 ML IV SCH (15:00)
[2019-03-31 16:00] VITALS: BP 134/69
[2019-03-31 20:00] VITALS: BP 111/60
[2019-04-01] VITALS: BP_SYST 100; BP_SYST 167; BP_DIAS 53; BP_DIAS 69
[2019-04-01] MEDS: METRONIDAZOLE 500 MG PREMIX 100 ML IV SCH ×3 (01:08→22:34)
[2019-04-01 04:00] VITALS: BP 113/59
[2019-04-01 08:00] VITALS: BP 118/62
[2019-04-01 12:00] VITALS: BP 128/62
[2019-04-01] MEDS: KETOROLAC 15MG/ML VIAL IV PRN ×2 (16:21→22:35)
[2019-04-01 20:00] VITALS: BP 117/56
[2019-04-02] VITALS (9 sets, daily range): BP systolic 98–171; BP diastolic 42–81
[2019-04-02] MEDS: METRONIDAZOLE 500 MG PREMIX 100 ML IV SCH (09:35)
[2019-04-02] MEDS ORDERED: LEVOFLOXACIN 250MG PREMIX 50 ML IV SCH (11:00)
[2019-04-02] MEDS ORDERED: LEVOFLOXACIN 250MG TABLET PO SCH (13:30)
[2019-04-02] MEDS: KETOROLAC 15MG/ML VIAL IV PRN (13:41)
[2019-04-02] MEDS: METRONIDAZOLE 500MG TABLET PO SCH (21:17)
[2019-04-03] VITALS: BP 121/50
[2019-04-03] MEDS: KETOROLAC 15MG/ML VIAL IV PRN (03:19)
[2019-04-03 04:00] VITALS: BP 121/48
[2019-04-03] MEDS: METRONIDAZOLE 500MG TABLET PO SCH (09:11)
[2019-04-03 12:00] VITALS: BP 132/77
[2019-04-03 16:00] VITALS: BP 132/73
[2019-04-03 18:17] VITALS: BP 132/73
[2019-04-03 20:00] VITALS: BP 114/52
[2019-04-10] MEDS ORDERED: METR-167 MT (15:37)
[2019-04-10] MEDS ORDERED: LEVO250T58 MT (15:37)
[2019-04-10] MEDS ORDERED: CHOL500010 MT (15:37)
== END 2019-04-03 20:45 | disposition home or self-care (01) | DRG 391 ==
LOC: ER 06:13 → 7WST 07:58 → EDBEDREQTM 08:05 → EDBEDREQ 08:05 → ENRESERV 08:48 → 7WST 11:05
PROVIDERS: ADMIT Internal Medicine; ATTEND Internal Medicine
PROC: 5A1D70Z Performance of Urinary Filtration, Intermittent, Less than 6 Hours Per Day (ICD-10-PCS; principal; 2019-03-31)
PROC: 5A1D70Z Performance of Urinary Filtration, Intermittent, Less than 6 Hours Per Day (ICD-10-PCS; 2019-04-01)
DX: K57.32 Diverticulitis of large intestine without perforation or abscess without bleeding (principal); N18.6 End stage renal disease; I13.2 Hypertensive heart and chronic kidney disease with heart failure and with stage 5 chronic kidney disease, or end stage renal disease; I95.9 Hypotension, unspecified; E11.621 Type 2 diabetes mellitus with foot ulcer; E11.40 Type 2 diabetes mellitus with diabetic neuropathy, unspecified; E11.22 Type 2 diabetes mellitus with diabetic chronic kidney disease; E11.51 Type 2 diabetes mellitus with diabetic peripheral angiopathy without gangrene; L97.529 Non-pressure chronic ulcer of other part of left foot with unspecified severity; E66.9 Obesity, unspecified; K80.20 Calculus of gallbladder without cholecystitis without obstruction; D64.9 Anemia, unspecified; E78.5 Hyperlipidemia, unspecified; J44.9 Chronic obstructive pulmonary disease, unspecified; I25.10 Atherosclerotic heart disease of native coronary artery without angina pectoris; I50.9 Heart failure, unspecified; I25.2 Old myocardial infarction; Z79.4 Long term (current) use of insulin; Z87.11 Personal history of peptic ulcer disease; Z87.891 Personal history of nicotine dependence; Z95.5 Presence of coronary angioplasty implant and graft; Z99.2 Dependence on renal dialysis; Z99.3 Dependence on wheelchair; Z87.81 Personal history of (healed) traumatic fracture; Z68.36 Body mass index [BMI] 36.0-36.9, adult; Z88.8 Allergy status to other drugs, medicaments and biological substances
CPT/HCPCS: 36415; 71045; 73630; 74176; 80202; 82962; 83605; 83735; 84100; 84484; 93005; 96374; 96375; 99285; C1893; J1885; J1956; J2270; J2405; J2543; J3370; J3490; J7030; J7050; J7060

== ENCOUNTER 2019-05-18 09:10 | Inpatient (IN) | payer MEDICARE, MEDICAID ==
[~2019-05-18] VITALS: Ht 165.1 cm; Wt 96.6 kg
[~2019-05-18 09:10] MED LIST changes: +CHOL500010 MT; +LEVO250T58 MT; +METR-167 MT
[2019-05-18 11:23] VITALS: BP 111/58
[2019-05-18 11:45] VITALS: BP 111/58
[2019-05-18] MEDS: HYDROMORPHONE HCL/PF 2MG/ML CPJ IV PRN ×2 (14:57→21:22)
[2019-05-18 15:21] VITALS: BP 125/58
[2019-05-18] MEDS ORDERED: VANCOMYCIN 2,000 MG in DEXT 5% WATER 500 ML IV NR (17:00)
[2019-05-18] MEDS ORDERED: VANCOMYCIN 1500MG in DEXTROSE 5% WATER 250ML IV NR (17:30)
[2019-05-18 17:58] LABS: BASOPHILS % 0.2 % (0.0-2.0); EOSINOPHILS % 1.1 % (0.0-5.0); HEMATOCRIT. 33.7 % (36.0-48.0); HEMOGLOBIN. 11.2 g/dL (12.0-16.0); LYMPHOCYTES % 9.1 % (20.0-50.0); MEAN CORPUSCULAR HEMOGLOBIN 30.9 pg (28.0-32.0); MEAN CORPUSCULAR VOLUME 93.4 fL (81.0-99.0); MONOCYTES % 6.4 % (2.0-8.0); NEUTROPHILS % 83.2 % (40.0-76.0); PLATELET 186 x1000/uL (130-400); RED BLOOD CELL COUNT 3.61 mill/uL (4.2-5.4); RED CELL DISTRIBUTION WIDTH 16.3 % (11.6-14.6)
[2019-05-18 18:03] LABS: CHLORIDE 92 mEq/L (98-107)
[2019-05-18 18:09] LABS: PHOSPHORUS 3.7 mg/dL (2.5-4.9)
[2019-05-18] MEDS ORDERED: PIPERACILLIN/TAZOBACTAM 2.25 G in DEXTROSE 5% WATER 50 ML IV NR (19:30)
[2019-05-18 20:00] VITALS: BP 97/45
[2019-05-18] MEDS: FAMOTIDINE 20MG TABLET PO SCH (20:05)
[2019-05-18] MEDS ORDERED: POTASSIUM CHLORIDE 20MEQ TABLET SR PO NR (20:30)
[2019-05-18] MEDS ORDERED: DEXTROSE 50% WATER 50ML SYRINGE IV PRN (20:30)
[2019-05-18] MEDS ORDERED: HEPARIN 5000 UNITS/ML VIAL SUBCUT SCH (21:00)
[2019-05-18] MEDS: INSULIN LISPRO 100 UNITS/ML SUBCUT SCH (21:00)
[2019-05-18] MEDS: BLOOD SUGAR DIAGNOSTIC STRIP TEST SCH (21:20)
[2019-05-19] VITALS: BP 94/48
[2019-05-19] MEDS: HEPARIN 5000 UNITS/ML VIAL SUBCUT SCH ×2 (03:54→16:41)
[2019-05-19 04:00] VITALS: BP 99/55
[2019-05-19 04:25] LABS: BASOPHILS % 0.7 % (0.0-2.0); EOSINOPHILS % 2.1 % (0.0-5.0); HEMATOCRIT. 32.4 % (36.0-48.0); HEMOGLOBIN. 10.9 g/dL (12.0-16.0); LYMPHOCYTES % 12.2 % (20.0-50.0); MEAN CORPUSCULAR HEMOGLOBIN 31.5 pg (28.0-32.0); MEAN CORPUSCULAR VOLUME 93.6 fL (81.0-99.0); MEAN PLATELET VOLUME 8.6 fl (7.4-10.4); MONOCYTES % 7.6 % (2.0-8.0); NEUTROPHILS % 77.4 % (40.0-76.0); PLATELET 183 x1000/uL (130-400); RED BLOOD CELL COUNT 3.46 mill/uL (4.2-5.4); RED CELL DISTRIBUTION WIDTH 16.1 % (11.6-14.6)
[2019-05-19 04:32] LABS: CHLORIDE 91 mEq/L (98-107)
[2019-05-19 04:38] LABS: PHOSPHORUS 5.4 mg/dL (2.5-4.9)
[2019-05-19] MEDS: BLOOD SUGAR DIAGNOSTIC STRIP TEST SCH ×4 (06:25→21:20)
[2019-05-19] MEDS: PIPERACILLIN/TAZOBACTAM 2.25 G in DEXTROSE 5% WATER 50 ML IV SCH ×2 (06:25→18:14)
[2019-05-19] MEDS: HYDROMORPHONE HCL/PF 2MG/ML CPJ IV PRN ×2 (06:26→16:01)
[2019-05-19] MEDS: INSULIN LISPRO 100 UNITS/ML SUBCUT SCH ×4 (07:50→21:30)
[2019-05-19 08:00] VITALS: BP 105/54
[2019-05-19 11:46] VITALS: BP 102/57
[2019-05-19] MEDS ORDERED: VANCOMYCIN 2,000 MG in DEXT 5% WATER 500 ML IV SCH (12:00)
[2019-05-19 15:36] VITALS: BP 115/44
[2019-05-19 20:00] VITALS: BP 91/47
[2019-05-19] MEDS: FAMOTIDINE 20MG TABLET PO SCH (20:47)
[2019-05-20 04:00] VITALS: BP 110/58
[2019-05-20] MEDS: HEPARIN 5000 UNITS/ML VIAL SUBCUT SCH ×2 (04:00→16:49)
[2019-05-20] MEDS: HYDROMORPHONE HCL/PF 2MG/ML CPJ IV PRN ×2 (05:53→19:10)
[2019-05-20] MEDS: PIPERACILLIN/TAZOBACTAM 2.25 G in DEXTROSE 5% WATER 50 ML IV SCH (06:40)
[2019-05-20] MEDS: BLOOD SUGAR DIAGNOSTIC STRIP TEST SCH ×4 (06:47→20:58)
[2019-05-20] MEDS ORDERED: BACITRACIN 50,000 UNITS/VIAL ONE (06:58)
[2019-05-20] MEDS ORDERED: BUPIVACAINE HCL/PF 0.5% (5MG/ML) 10ML ONE (06:58)
[2019-05-20] MEDS ORDERED: GENTAMICIN SULF 40MG/ML 2ML VIAL ONE (06:58)
[2019-05-20] MEDS ORDERED: LIDOCAINE HCL 1% 20ML VIAL (Pyxis) INJ ONE (06:58)
[2019-05-20] MEDS ORDERED: NORMAL SALINE 0.9% 10 ML SYR ONE (06:58)
[2019-05-20] MEDS: INSULIN LISPRO 100 UNITS/ML SUBCUT SCH ×4 (07:43→20:58)
[2019-05-20 08:00] VITALS: BP 113/47
[2019-05-20] MEDS ORDERED: MIDAZOLAM HCL 2 MG/2 ML VIAL ONE (11:13)
[2019-05-20] MEDS ORDERED: PROPOFOL 200MG/20ML VIAL IV ONE (11:13)
[2019-05-20] MEDS ORDERED: FENTANYL CITRATE/PF 50MCG/ML 2ML VIAL ONE (11:13)
[2019-05-20] MEDS ORDERED: DEXAMETHASONE 4MG/ML 1ML VIAL ONE (11:38)
[2019-05-20] MEDS ORDERED: ONDANSETRON HCL 4MG/2ML INJ IV PRN (11:45)
[2019-05-20] MEDS ORDERED: LABETALOL 5MG/ML SYR 20 MG/4 ML SYRINGE IV PRN (11:45)
[2019-05-20] MEDS ORDERED: HYDROMORPHONE HCL/PF 2MG/ML CPJ IV PRN (11:45)
[2019-05-20] MEDS ORDERED: MEPERIDINE HCL/PF 25MG/ML CPJ IV PRN (11:45)
[2019-05-20 16:00] VITALS: BP 117/46
[2019-05-20] MEDS: PIPERACILLIN/TAZ 2.25G PREMIX 50 ML IV SCH (18:52)
[2019-05-20 20:00] VITALS: BP 117/60
[2019-05-20] MEDS: SILVER SULFADIAZINE 1% CREAM 50GM TOP SCH (20:48)
[2019-05-20] MEDS: FAMOTIDINE 20MG TABLET PO SCH (20:48)
[2019-05-21] VITALS: BP 117/61
[2019-05-21] MEDS: HYDROMORPHONE HCL/PF 2MG/ML CPJ IV PRN ×3 (02:36→21:39)
[2019-05-21] MEDS: HEPARIN 5000 UNITS/ML VIAL SUBCUT SCH ×2 (03:01→15:55)
[2019-05-21 04:00] VITALS: BP 116/58
[2019-05-21] MEDS: PIPERACILLIN/TAZ 2.25G PREMIX 50 ML IV SCH ×2 (05:15→17:56)
[2019-05-21 07:12] LABS: BASOPHILS % 0.5 % (0.0-2.0); EOSINOPHILS % 3.2 % (0.0-5.0); HEMATOCRIT. 29.8 % (36.0-48.0); HEMOGLOBIN. 10.1 g/dL (12.0-16.0); LYMPHOCYTES % 12.1 % (20.0-50.0); MEAN CORPUSCULAR HEMOGLOBIN 31.8 pg (28.0-32.0); MEAN CORPUSCULAR VOLUME 93.9 fL (81.0-99.0); MEAN PLATELET VOLUME 8.4 fl (7.4-10.4); MONOCYTES % 7.7 % (2.0-8.0); NEUTROPHILS % 76.5 % (40.0-76.0); PLATELET 197 x1000/uL (130-400); RED BLOOD CELL COUNT 3.17 mill/uL (4.2-5.4); RED CELL DISTRIBUTION WIDTH 16.1 % (11.6-14.6)
[2019-05-21] MEDS: BLOOD SUGAR DIAGNOSTIC STRIP TEST SCH ×4 (07:20→21:44)
[2019-05-21 07:39] LABS: CHLORIDE 99 mEq/L (98-107)
[2019-05-21 07:45] LABS: PHOSPHORUS 4.2 mg/dL (2.5-4.9)
[2019-05-21] MEDS: INSULIN LISPRO 100 UNITS/ML SUBCUT SCH ×4 (07:50→21:00)
[2019-05-21 08:00] VITALS: BP 110/46
[2019-05-21] MEDS: SILVER SULFADIAZINE 1% CREAM 50GM TOP SCH (09:50)
[2019-05-21 12:00] VITALS: BP 121/54
[2019-05-21 16:00] VITALS: BP 121/80
[2019-05-21] MEDS ORDERED: VANCOMYCIN 1250MG in DEXTROSE 5% WATER 250ML IV NR (18:00)
[2019-05-21 20:00] VITALS: BP 117/59
[2019-05-21] MEDS: FAMOTIDINE 20MG TABLET PO SCH (21:39)
[2019-05-22] VITALS (7 sets, daily range): BP systolic 128–140; BP diastolic 59–70
[2019-05-22] MEDS: HEPARIN 5000 UNITS/ML VIAL SUBCUT SCH ×2 (03:30→16:16)
[2019-05-22] MEDS: PIPERACILLIN/TAZ 2.25G PREMIX 50 ML IV SCH ×2 (05:24→17:43)
[2019-05-22] MEDS: BLOOD SUGAR DIAGNOSTIC STRIP TEST SCH ×4 (06:28→21:12)
[2019-05-22] MEDS: INSULIN LISPRO 100 UNITS/ML SUBCUT SCH ×4 (07:50→21:00)
[2019-05-22] MEDS: SILVER SULFADIAZINE 1% CREAM 50GM TOP SCH (08:30)
[2019-05-22] MEDS: HYDROMORPHONE HCL/PF 2MG/ML CPJ IV PRN (08:34)
[2019-05-22] MEDS: FAMOTIDINE 20MG TABLET PO SCH (20:48)
[2019-05-23] VITALS: BP 116/77
[2019-05-23 04:00] VITALS: BP 126/69
[2019-05-23] MEDS: HEPARIN 5000 UNITS/ML VIAL SUBCUT SCH ×2 (04:32→16:00)
[2019-05-23] MEDS: PIPERACILLIN/TAZ 2.25G PREMIX 50 ML IV SCH ×2 (05:54→18:05)
[2019-05-23] MEDS: INSULIN LISPRO 100 UNITS/ML SUBCUT SCH ×4 (06:09→21:00)
[2019-05-23] MEDS: BLOOD SUGAR DIAGNOSTIC STRIP TEST SCH ×4 (06:09→21:38)
[2019-05-23 08:00] VITALS: BP 120/71
[2019-05-23] MEDS: SILVER SULFADIAZINE 1% CREAM 50GM TOP SCH (09:36)
[2019-05-23] MEDS: HYDROMORPHONE HCL/PF 2MG/ML CPJ IV PRN ×2 (09:47)
[2019-05-23 12:00] VITALS: BP 137/65
[2019-05-23 16:00] VITALS: BP 133/64
[2019-05-23] MEDS ORDERED: HYDROMORPHONE HCL/PF 2MG/ML CPJ IV PRN (18:45)
[2019-05-23 20:00] VITALS: BP 127/62
[2019-05-23] MEDS: FAMOTIDINE 20MG TABLET PO SCH (21:38)
[2019-05-24] VITALS: BP 138/71
[2019-05-24 04:00] VITALS: BP 119/65
[2019-05-24] MEDS: PIPERACILLIN/TAZ 2.25G PREMIX 50 ML IV SCH (05:35)
[2019-05-24] MEDS: BLOOD SUGAR DIAGNOSTIC STRIP TEST SCH ×4 (07:32→21:03)
[2019-05-24] MEDS: INSULIN LISPRO 100 UNITS/ML SUBCUT SCH ×4 (07:50→21:00)
[2019-05-24 07:51] LABS: CHLORIDE 101 mEq/L (98-107)
[2019-05-24 08:00] VITALS: BP 140/70
[2019-05-24] MEDS: SILVER SULFADIAZINE 1% CREAM 50GM TOP SCH (09:21)
[2019-05-24 12:00] VITALS: BP 143/65
[2019-05-24 16:00] VITALS: BP 153/62
[2019-05-24] MEDS ORDERED: ACETAMINOPHEN 325MG TABLET PO PRN (19:00)
[2019-05-24 20:00] VITALS: BP 147/63
[2019-05-24] MEDS: FAMOTIDINE 20MG TABLET PO SCH (20:57)
[2019-05-24] MEDS ORDERED: AMOXICILLIN/POTASSIUM CLAVULANATE 500/125MG TAB PO SCH (21:00)
== END 2019-05-24 22:50 | DRG 629 ==
LOC: 6EST 10:15
PROVIDERS: ADMIT Internal Medicine; ATTEND Internal Medicine
PROC: 02HV33Z Insertion of Infusion Device into Superior Vena Cava, Percutaneous Approach (ICD-10-PCS; 2019-05-18)
PROC: B548ZZA Ultrasonography of Superior Vena Cava, Guidance (ICD-10-PCS; 2019-05-18)
PROC: B5181ZA Fluoroscopy of Superior Vena Cava using Low Osmolar Contrast, Guidance (ICD-10-PCS; 2019-05-18)
PROC: 5A1D70Z Performance of Urinary Filtration, Intermittent, Less than 6 Hours Per Day (ICD-10-PCS; 2019-05-19)
PROC: 0QBN0ZZ Excision of Right Metatarsal, Open Approach (ICD-10-PCS; principal; 2019-05-20)
PROC: 5A1D70Z Performance of Urinary Filtration, Intermittent, Less than 6 Hours Per Day (ICD-10-PCS; 2019-05-21)
PROC: 5A1D70Z Performance of Urinary Filtration, Intermittent, Less than 6 Hours Per Day (ICD-10-PCS; 2019-05-23)
DX: E11.621 Type 2 diabetes mellitus with foot ulcer (principal); L03.115 Cellulitis of right lower limb; L02.611 Cutaneous abscess of right foot; I12.0 Hypertensive chronic kidney disease with stage 5 chronic kidney disease or end stage renal disease; L03.116 Cellulitis of left lower limb; N18.6 End stage renal disease; E11.51 Type 2 diabetes mellitus with diabetic peripheral angiopathy without gangrene; E11.42 Type 2 diabetes mellitus with diabetic polyneuropathy; E66.9 Obesity, unspecified; K80.20 Calculus of gallbladder without cholecystitis without obstruction; L97.519 Non-pressure chronic ulcer of other part of right foot with unspecified severity; S92.301A Fracture of unspecified metatarsal bone(s), right foot, initial encounter for closed fracture; J44.9 Chronic obstructive pulmonary disease, unspecified; I70.213 Atherosclerosis of native arteries of extremities with intermittent claudication, bilateral legs; I25.10 Atherosclerotic heart disease of native coronary artery without angina pectoris; E78.5 Hyperlipidemia, unspecified; D64.9 Anemia, unspecified; E11.21 Type 2 diabetes mellitus with diabetic nephropathy; I80.3 Phlebitis and thrombophlebitis of lower extremities, unspecified; E79.0 Hyperuricemia without signs of inflammatory arthritis and tophaceous disease; L97.529 Non-pressure chronic ulcer of other part of left foot with unspecified severity; B95.2 Enterococcus as the cause of diseases classified elsewhere; J98.2 Interstitial emphysema; X58.XXXA Exposure to other specified factors, initial encounter; Z90.49 Acquired absence of other specified parts of digestive tract; Z98.49 Cataract extraction status, unspecified eye; Z68.35 Body mass index [BMI] 35.0-35.9, adult; I25.2 Old myocardial infarction; Z87.891 Personal history of nicotine dependence; Z88.6 Allergy status to analgesic agent; Z99.2 Dependence on renal dialysis; Z99.3 Dependence on wheelchair; Z95.5 Presence of coronary angioplasty implant and graft; Z88.8 Allergy status to other drugs, medicaments and biological substances; Z82.49 Family history of ischemic heart disease and other diseases of the circulatory system; Z83.3 Family history of diabetes mellitus; Z83.6 Family history of other diseases of the respiratory system; Z98.42 Cataract extraction status, left eye; Z98.41 Cataract extraction status, right eye; Y93.89 Activity, other specified; Y92.89 Other specified places as the place of occurrence of the external cause; Y99.8 Other external cause status
CPT/HCPCS: 36415; 36573; 73630; 80069; 80076; 80202; 82248; 82962; 83735; 84100; 84550; 85651; 87070; 87075; 87077; 87186; 88304; 88311; 93005; C1725; J1100; J1170; J1580; J1644; J1815; J2250; J2405; J2543; J2704; J3010; J3370; J3490; J7040; J7060

== ENCOUNTER 2019-12-01 17:45 | Inpatient (IN) | payer MEDICARE, MEDICAID ==
[~2019-12-01] VITALS: Ht 167.6 cm; Wt 88.5 kg
[~2019-12-01 17:45] MED LIST changes: -LEVO250T58 MT; +LEVO250T58 PO; -METR-167 MT; +METR-167 PO
[2019-12-01 19:01] VITALS: BP 110/64
[2019-12-01 20:00] VITALS: BP 125/59
[2019-12-01 20:30] VITALS: BP 125/59
[2019-12-02] VITALS: BP 96/60
[2019-12-02] MEDS ORDERED: BUSPIRONE HCL 5MG TABLET PO NR (02:45)
[2019-12-02] MEDS ORDERED: DEXTROSE 50% WATER 50ML SYRINGE IV PRN (03:15)
[2019-12-02] MEDS ORDERED: IPRATROPIUM/ALBUTEROL 0.5-3(2.5)MG/3ML NEB HHN PRN (03:15)
[2019-12-02] MEDS ORDERED: ONDANSETRON HCL 4MG/2ML INJ IV PRN (03:15)
[2019-12-02] MEDS ORDERED: ACETAMINOPHEN 325MG TABLET PO PRN (03:15)
[2019-12-02] MEDS ORDERED: DIPHENHYDRAMINE 50MG/ML VIAL IV PRN (03:15)
[2019-12-02] MEDS ORDERED: MAGNESIUM HYDROXIDE 400MG/5ML 30ML UDC PO PRN (03:15)
[2019-12-02 04:00] VITALS: BP 118/63
[2019-12-02] MEDS ORDERED: LEVOFLOXACIN 500MG PREMIX 100 ML IV NR (05:00)
[2019-12-02] MEDS: BENZONATATE 100MG CAPSULE PO SCH ×4 (05:27→21:32)
[2019-12-02] MEDS: SODIUM CHLORIDE 0.9% INJ 3ML FLUSH IVF SCH ×3 (05:28→21:32)
[2019-12-02] MEDS: BLOOD SUGAR DIAGNOSTIC STRIP TEST SCH ×4 (06:05→21:41)
[2019-12-02 08:00] VITALS: BP 114/51
[2019-12-02] MEDS: INSULIN LISPRO 100 UNITS/ML SUBCUT SCH ×4 (08:08→21:40)
[2019-12-02] MEDS ORDERED: FAMOTIDINE 20MG/2ML VIAL IV SCH (09:00)
[2019-12-02] MEDS: BUDESONIDE 0.5MG/2ML NEB HHN SCH ×2 (09:05→20:50)
[2019-12-02] MEDS: IPRATROPIUM/ALBUTEROL 0.5-3(2.5)MG/3ML NEB HHN SCH ×2 (09:06→20:50)
[2019-12-02] MEDS: GUAIFENESIN 600MG ER TABLET PO SCH ×2 (11:02→21:32)
[2019-12-02 11:23] LABS: BASOPHILS % 0.8 % (0.0-2.0); EOSINOPHILS % 2.8 % (0.0-5.0); HEMATOCRIT. 33.2 % (36.0-48.0); MEAN CORPUSCULAR HEMOGLOBIN 30.3 pg (28.0-32.0); MEAN PLATELET VOLUME 8.9 fl (7.4-10.4); MONOCYTES % 7.4 % (2.0-8.0); PLATELET 163 x1000/uL (130-400); RED BLOOD CELL COUNT 3.64 mill/uL (4.2-5.4); RED CELL DISTRIBUTION WIDTH 14.2 % (11.6-14.6)
[2019-12-02 11:37] LABS: CHLORIDE 103 mEq/L (98-107)
[2019-12-02 12:00] VITALS: BP 110/48
[2019-12-02 16:00] VITALS: BP 108/56
[2019-12-02] MEDS: FAMOTIDINE 20MG/2ML VIAL IV SCH (16:48)
[2019-12-02] MEDS: MIDODRINE HCL 2.5MG TABLET PO SCH (18:16)
[2019-12-02 20:35] VITALS: BP 122/62
[2019-12-03 00:16] VITALS: BP 115/56
[2019-12-03] MEDS: GUAIFENESIN 200MG/10ML SUGAR FREE UDC PO PRN ×3 (01:22→22:40)
[2019-12-03] MEDS: IPRATROPIUM/ALBUTEROL 0.5-3(2.5)MG/3ML NEB HHN SCH ×5 (01:43→21:28)
[2019-12-03] MEDS ORDERED: LEVOFLOXACIN 500MG PREMIX 100 ML IV SCH (03:15)
[2019-12-03 04:00] VITALS: BP 91/31
[2019-12-03] MEDS: BLOOD SUGAR DIAGNOSTIC STRIP TEST SCH ×4 (06:25→20:47)
[2019-12-03] MEDS: BENZONATATE 100MG CAPSULE PO SCH ×3 (06:25→23:22)
[2019-12-03] MEDS: INSULIN LISPRO 100 UNITS/ML SUBCUT SCH ×4 (06:25→21:00)
[2019-12-03] MEDS: SODIUM CHLORIDE 0.9% INJ 3ML FLUSH IVF SCH ×3 (06:26→22:40)
[2019-12-03] MEDS: BUDESONIDE 0.5MG/2ML NEB HHN SCH ×2 (07:31→21:28)
[2019-12-03 07:58] VITALS: BP 118/59
[2019-12-03] MEDS: FAMOTIDINE 20MG/2ML VIAL IV SCH (10:14)
[2019-12-03] MEDS: MIDODRINE HCL 2.5MG TABLET PO SCH ×3 (10:15→17:59)
[2019-12-03] MEDS: GUAIFENESIN 600MG ER TABLET PO SCH ×2 (10:18→20:47)
[2019-12-03 12:00] VITALS: BP 112/53
[2019-12-03 16:00] VITALS: BP 117/62
[2019-12-03 20:00] VITALS: BP 105/69
[2019-12-04] VITALS: BP 114/43
[2019-12-04] MEDS: IPRATROPIUM/ALBUTEROL 0.5-3(2.5)MG/3ML NEB HHN SCH ×2 (02:30→09:13)
[2019-12-04 04:00] VITALS: BP 135/56
[2019-12-04] MEDS: SODIUM CHLORIDE 0.9% INJ 3ML FLUSH IVF SCH (06:31)
[2019-12-04] MEDS: BENZONATATE 100MG CAPSULE PO SCH (06:31)
[2019-12-04] MEDS: BLOOD SUGAR DIAGNOSTIC STRIP TEST SCH (06:39)
[2019-12-04 08:00] VITALS: BP 102/45
[2019-12-04] MEDS: INSULIN LISPRO 100 UNITS/ML SUBCUT SCH (08:10)
[2019-12-04] MEDS: GUAIFENESIN 600MG ER TABLET PO SCH (09:00)
[2019-12-04] MEDS: BUDESONIDE 0.5MG/2ML NEB HHN SCH (09:13)
[2019-12-04] MEDS: MIDODRINE HCL 2.5MG TABLET PO SCH (10:30)
[2019-12-04] MEDS: FAMOTIDINE 20MG/2ML VIAL IV SCH (10:31)
[2019-12-04] MEDS: GUAIFENESIN 200MG/10ML SUGAR FREE UDC PO PRN (10:31)
[2019-12-04] MEDS ORDERED: LEVOFLOXACIN 250MG PREMIX 50 ML IV SCH (11:00)
[2019-12-04 12:00] VITALS: BP 130/62
[2019-12-04 15:54] VITALS: BP 130/62
== END 2019-12-04 16:00 | disposition home health service (06) | DRG 291 ==
LOC: 7WST 17:45
PROVIDERS: ADMIT Internal Medicine; ATTEND Internal Medicine
PROC: 5A1D70Z Performance of Urinary Filtration, Intermittent, Less than 6 Hours Per Day (ICD-10-PCS; 2019-12-02)
PROC: 5A1D70Z Performance of Urinary Filtration, Intermittent, Less than 6 Hours Per Day (ICD-10-PCS; principal; 2019-12-03)
DX: I13.2 Hypertensive heart and chronic kidney disease with heart failure and with stage 5 chronic kidney disease, or end stage renal disease (principal); J18.9 Pneumonia, unspecified organism; N18.6 End stage renal disease; I50.33 Acute on chronic diastolic (congestive) heart failure; J44.0 Chronic obstructive pulmonary disease with (acute) lower respiratory infection; E11.22 Type 2 diabetes mellitus with diabetic chronic kidney disease; I25.10 Atherosclerotic heart disease of native coronary artery without angina pectoris; K21.9 Gastro-esophageal reflux disease without esophagitis; E11.40 Type 2 diabetes mellitus with diabetic neuropathy, unspecified; E78.5 Hyperlipidemia, unspecified; E66.3 Overweight; I95.3 Hypotension of hemodialysis; D64.9 Anemia, unspecified; Z68.31 Body mass index [BMI] 31.0-31.9, adult; Z99.2 Dependence on renal dialysis; Z59.0 Homelessness; Z88.8 Allergy status to other drugs, medicaments and biological substances
CPT/HCPCS: 36415; 71045; 80053; 82962; 85025; 87804; 93005; 93970; 94640; 97162; 97166; C1893; J1956; J3490; J7620; J7626

== ENCOUNTER 2020-06-02 05:57 | Inpatient (IN) | payer MEDICARE, MEDICAID ==
[~2020-06-02] VITALS: Ht 165.1 cm; Wt 84.4 kg
[~2020-06-02 05:57] MED LIST changes: -CHOL500010 MT; -INSU100I7 SQ; -LEVO250T58 PO; -METR-167 PO
[2020-06-02 08:27] LABS: BASOPHILS % 1.3 % (0.0-2.0); EOSINOPHILS % 2.5 % (0.0-5.0); HEMATOCRIT. 39.5 % (36.0-48.0); HEMOGLOBIN. 13.3 g/dL (12.0-16.0); LYMPHOCYTES % 28.3 % (20.0-50.0); MEAN CORPUSCULAR HEMOGLOBIN 31.6 pg (28.0-32.0); MEAN CORPUSCULAR VOLUME 93.8 fL (81.0-99.0); MEAN PLATELET VOLUME 8.7 fl (7.4-10.4); MONOCYTES % 6.9 % (2.0-8.0); PLATELET 189 x1000/uL (130-400); RED BLOOD CELL COUNT 4.22 mill/uL (4.2-5.4); RED CELL DISTRIBUTION WIDTH 15.6 % (11.6-14.6)
[2020-06-02 08:29] LABS: CHLORIDE 97 mEq/L (98-107)
[2020-06-02] MEDS ORDERED: MORPHINE SULFATE 4 MG/ML CPJ (NOT FOR IM USE) IV STA (08:53)
[2020-06-02] MEDS ORDERED: FAMOTIDINE 20MG/2ML VIAL IV STA (08:53)
[2020-06-02] MEDS ORDERED: ONDANSETRON HCL 4MG/2ML INJ IV STA (08:53)
[2020-06-02 09:07] LABS: INR 1.1; PROTHROMBIN TIME 11.4 sec (9.6-11.0)
[2020-06-02] MEDS ORDERED: MORPHINE SULFATE 4 MG/ML CPJ (NOT FOR IM USE) IV ONE (09:10)
[2020-06-02] MEDS ORDERED: ONDANSETRON HCL 4MG/2ML INJ ONE (09:10)
[2020-06-02] MEDS ORDERED: FAMOTIDINE 40MG TABLET ONE (09:11)
[2020-06-02] MEDS ORDERED: DIPHENHYDRAMINE 50MG/ML VIAL IV PRN (11:15)
[2020-06-02] MEDS ORDERED: DEXTROSE 50% WATER 50ML SYRINGE IV PRN (11:15)
[2020-06-02] MEDS ORDERED: GUAIFENESIN 200MG/10ML SUGAR FREE UDC PO PRN (11:15)
[2020-06-02] MEDS ORDERED: CLONIDINE 0.1MG TABLET PO PRN (11:15)
[2020-06-02] MEDS ORDERED: ACETAMINOPHEN 325MG TABLET PO PRN ×2 (11:15)
[2020-06-02] MEDS: BLOOD SUGAR DIAGNOSTIC STRIP TEST SCH ×3 (12:27→21:47)
[2020-06-02] MEDS: INSULIN LISPRO 100 UNITS/ML SUBCUT SCH ×3 (12:50→21:00)
[2020-06-02 13:30] VITALS: BP 92/54
[2020-06-02] MEDS: HYDROCODONE/ACETAMINOPHEN 5/325MG TABLET PO PRN ×2 (14:39→21:10)
[2020-06-02] MEDS: SODIUM CHLORIDE 0.9% INJ 3ML FLUSH IVF SCH ×2 (14:41→21:10)
[2020-06-02] MEDS ORDERED: ALBU2.5V13 IH (16:46)
[2020-06-02 20:26] VITALS: BP 93/51
[2020-06-02] MEDS ORDERED: ZOLPIDEM TARTRATE 5MG TABLET PO PRN (21:00)
[2020-06-03] VITALS: BP 109/50
[2020-06-03 04:00] VITALS: BP 101/47
[2020-06-03] MEDS: HYDROCODONE/ACETAMINOPHEN 5/325MG TABLET PO PRN ×2 (04:19→11:49)
[2020-06-03 06:40] LABS: BASOPHILS % 0.8 % (0.0-2.0); EOSINOPHILS % 3.3 % (0.0-5.0); HEMATOCRIT. 33.8 % (36.0-48.0); HEMOGLOBIN. 11.4 g/dL (12.0-16.0); LYMPHOCYTES % 33.3 % (20.0-50.0); MEAN CORPUSCULAR HEMOGLOBIN 31.7 pg (28.0-32.0); MEAN CORPUSCULAR VOLUME 93.9 fL (81.0-99.0); MEAN PLATELET VOLUME 8.7 fl (7.4-10.4); MONOCYTES % 9.2 % (2.0-8.0); NEUTROPHILS % 53.4 % (40.0-76.0); PLATELET 171 x1000/uL (130-400); RED CELL DISTRIBUTION WIDTH 15.5 % (11.6-14.6)
[2020-06-03 06:54] LABS: CHLORIDE 98 mEq/L (98-107)
[2020-06-03] MEDS: BLOOD SUGAR DIAGNOSTIC STRIP TEST SCH ×4 (06:56→20:31)
[2020-06-03] MEDS: INSULIN LISPRO 100 UNITS/ML SUBCUT SCH ×4 (06:56→20:39)
[2020-06-03] MEDS: SODIUM CHLORIDE 0.9% INJ 3ML FLUSH IVF SCH ×3 (06:57→21:31)
[2020-06-03 08:00] VITALS: BP 138/57
[2020-06-03 12:00] VITALS: BP 102/57
[2020-06-03 16:00] VITALS: BP 114/67
[2020-06-03 20:27] VITALS: BP 105/64
[2020-06-04] VITALS: BP 110/59
[2020-06-04 04:00] VITALS: BP 96/52
[2020-06-04] MEDS: SODIUM CHLORIDE 0.9% INJ 3ML FLUSH IVF SCH ×3 (07:01→21:53)
[2020-06-04] MEDS: INSULIN LISPRO 100 UNITS/ML SUBCUT SCH ×4 (07:50→21:45)
[2020-06-04 08:00] VITALS: BP 102/49
[2020-06-04] MEDS: BLOOD SUGAR DIAGNOSTIC STRIP TEST SCH ×4 (08:14→21:40)
[2020-06-04 20:00] VITALS: BP 142/53
[2020-06-05] VITALS: BP 101/61
[2020-06-05 04:00] VITALS: BP 122/62
[2020-06-05] MEDS: BLOOD SUGAR DIAGNOSTIC STRIP TEST SCH ×4 (07:37→21:00)
[2020-06-05] MEDS: INSULIN LISPRO 100 UNITS/ML SUBCUT SCH ×4 (07:37→21:00)
[2020-06-05 08:00] VITALS: BP 114/82
[2020-06-05] MEDS: ERYTHROMYCIN 250MG CAPSULE DR PO SCH ×3 (08:50→17:52)
[2020-06-05] MEDS: NEOMYCIN 500MG TABLET PO SCH ×3 (08:51→17:52)
[2020-06-05] MEDS: SODIUM CHLORIDE 0.9% INJ 3ML FLUSH IVF SCH ×3 (08:56→22:06)
[2020-06-05 12:00] VITALS: BP 130/65
[2020-06-05] MEDS: ONDANSETRON HCL 4MG/2ML INJ IV PRN ×2 (15:32→19:52)
[2020-06-05 16:00] VITALS: BP 125/95
[2020-06-05 20:00] VITALS: BP 134/57
[2020-06-05] MEDS ORDERED: MAGNESIUM CITRATE 300ML SOLUTION PO SCH (21:00)
[2020-06-06] VITALS: BP 145/61
[2020-06-06 04:00] VITALS: BP 131/60
[2020-06-06] MEDS ORDERED: SKIN ADHESIVE 0.7 GM EA TOP ONE (06:50)
[2020-06-06] MEDS ORDERED: BUPIVACAINE HCL 0.5% (5MG/ML) 50ML ONE (06:51)
[2020-06-06] MEDS ORDERED: ONDANSETRON HCL 4MG/2ML INJ IV PRN ×2 (07:00→09:00)
[2020-06-06] MEDS ORDERED: HYDROCODONE/ACETAMINOPHEN 5/325MG TABLET PO PRN ×2 (07:00)
[2020-06-06] MEDS: DEXT 5%/0.45% NACL 1000ML 1,000 ML IV SCH ×3 (07:15→21:48)
[2020-06-06] MEDS ORDERED: ROCURONIUM BROMIDE 10MG/ML VIAL 5ML IV ONE (07:21)
[2020-06-06] MEDS ORDERED: PROPOFOL 200MG/20ML VIAL IV ONE (07:21)
[2020-06-06] MEDS ORDERED: FENTANYL CITRATE/PF 50MCG/ML 2ML VIAL ONE (07:21)
[2020-06-06] MEDS ORDERED: CEFAZOLIN SODIUM 1000MG/VIAL ONE ×2 (07:37→07:38)
[2020-06-06] MEDS ORDERED: DEXAMETHASONE 4MG/ML 1ML VIAL ONE (07:38)
[2020-06-06] MEDS ORDERED: SODIUM CHLORIDE 0.9% 10ML VIAL ONE (07:38)
[2020-06-06] MEDS ORDERED: ONDANSETRON HCL 4MG/2ML INJ ONE (07:39)
[2020-06-06] MEDS ORDERED: EPHEDRINE SULFATE 50MG/ML VIAL ONE (07:39)
[2020-06-06] MEDS ORDERED: PHENYLEPHRINE HCL 10 MG/ML 1ML (IV VIAL) IV ONE (07:39)
[2020-06-06] MEDS ORDERED: METOCLOPRAMIDE HCL 10MG/2ML VIAL ONE (07:39)
[2020-06-06] MEDS: INSULIN LISPRO 100 UNITS/ML SUBCUT SCH ×4 (07:50→21:48)
[2020-06-06] MEDS: BLOOD SUGAR DIAGNOSTIC STRIP TEST SCH ×4 (07:54→21:06)
[2020-06-06] MEDS ORDERED: GLYCOPYRROLATE 0.2 MG/ML 2ML VIAL ONE (08:42)
[2020-06-06] MEDS ORDERED: NEOSTIGMINE METHYLSULFATE 1MG/ML 10 ML VIAL ONE (08:42)
[2020-06-06] MEDS: NEOMYCIN 500MG TABLET PO SCH ×3 (09:00→17:25)
[2020-06-06] MEDS ORDERED: HYDROMORPHONE HCL/PF 2MG/ML CPJ IV PRN (09:00)
[2020-06-06] MEDS: ERYTHROMYCIN 250MG CAPSULE DR PO SCH ×3 (09:00→17:25)
[2020-06-06 12:00] VITALS: BP 132/58
[2020-06-06] MEDS: MORPHINE SULFATE 2 MG/ML CPJ (NOT FOR IM USE) IV PRN (12:22)
[2020-06-06] MEDS: SODIUM CHLORIDE 0.9% INJ 3ML FLUSH IVF SCH ×2 (13:15→21:48)
[2020-06-06 16:00] VITALS: BP 150/71
[2020-06-06 20:00] VITALS: BP 140/64
[2020-06-06] MEDS: ATORVASTATIN CALCIUM 20MG TABLET PO SCH (20:35)
[2020-06-06] MEDS: MORPHINE SULFATE 4 MG/ML CPJ (NOT FOR IM USE) IV PRN (20:36)
[2020-06-07] VITALS: BP 125/56
[2020-06-07] MEDS: IPRATROPIUM/ALBUTEROL 0.5-3(2.5)MG/3ML NEB HHN PRN ×2 (00:43→21:55)
[2020-06-07] MEDS: MORPHINE SULFATE 4 MG/ML CPJ (NOT FOR IM USE) IV PRN ×2 (02:28→08:25)
[2020-06-07 04:00] VITALS: BP 123/58
[2020-06-07] MEDS: BLOOD SUGAR DIAGNOSTIC STRIP TEST SCH ×4 (06:49→20:35)
[2020-06-07] MEDS: SODIUM CHLORIDE 0.9% INJ 3ML FLUSH IVF SCH ×3 (06:53→22:50)
[2020-06-07] MEDS: DEXT 5%/0.45% NACL 1000ML 1,000 ML IV SCH ×2 (06:56→20:44)
[2020-06-07 06:59] LABS: HEMATOCRIT. 35.4 % (36.0-48.0); HEMOGLOBIN. 11.9 g/dL (12.0-16.0); MEAN CORPUSCULAR HEMOGLOBIN 31.6 pg (28.0-32.0); MEAN CORPUSCULAR VOLUME 93.9 fL (81.0-99.0); MEAN PLATELET VOLUME 9.2 fl (7.4-10.4); PLATELET 185 x1000/uL (130-400); RED BLOOD CELL COUNT 3.77 mill/uL (4.2-5.4); RED CELL DISTRIBUTION WIDTH 15.2 % (11.6-14.6)
[2020-06-07 08:00] VITALS: BP 124/59
[2020-06-07] MEDS: INSULIN LISPRO 100 UNITS/ML SUBCUT SCH ×4 (08:05→20:43)
[2020-06-07] MEDS: ERYTHROMYCIN 250MG CAPSULE DR PO SCH ×3 (08:24→17:11)
[2020-06-07] MEDS: NEOMYCIN 500MG TABLET PO SCH ×3 (08:24→17:11)
[2020-06-07 12:00] VITALS: BP 106/57
[2020-06-07 13:37] LABS: PLATELET ESTIMATE NORMAL
[2020-06-07 16:00] VITALS: BP 157/64
[2020-06-07 20:00] VITALS: BP 109/42
[2020-06-07] MEDS: ATORVASTATIN CALCIUM 20MG TABLET PO SCH (20:35)
[2020-06-07] MEDS: MORPHINE SULFATE 2 MG/ML CPJ (NOT FOR IM USE) IV PRN (20:52)
[2020-06-08] VITALS: BP 103/45
[2020-06-08] MEDS: MORPHINE SULFATE 2 MG/ML CPJ (NOT FOR IM USE) IV PRN (00:38)
[2020-06-08] MEDS: IPRATROPIUM/ALBUTEROL 0.5-3(2.5)MG/3ML NEB HHN PRN ×2 (02:15→12:06)
[2020-06-08 04:00] VITALS: BP 108/41
[2020-06-08] MEDS: SODIUM CHLORIDE 0.9% INJ 3ML FLUSH IVF SCH (06:26)
[2020-06-08] MEDS: DEXT 5%/0.45% NACL 1000ML 1,000 ML IV SCH (06:26)
[2020-06-08] MEDS: BLOOD SUGAR DIAGNOSTIC STRIP TEST SCH ×2 (07:42→12:39)
[2020-06-08 08:00] VITALS: BP 116/52
[2020-06-08] MEDS: NEOMYCIN 500MG TABLET PO SCH ×2 (08:56→12:40)
[2020-06-08] MEDS: ERYTHROMYCIN 250MG CAPSULE DR PO SCH ×2 (08:56→12:40)
[2020-06-08] MEDS: INSULIN LISPRO 100 UNITS/ML SUBCUT SCH ×2 (09:01→12:41)
[2020-06-08] MEDS: MORPHINE SULFATE 4 MG/ML CPJ (NOT FOR IM USE) IV PRN (09:46)
[2020-06-08 12:00] VITALS: BP 102/42
[2020-06-08 15:50] VITALS: BP 102/42
[2020-06-08] MEDS ORDERED: IPRATROPIUM/ALBUTEROL 0.5-3(2.5)MG/3ML NEB HHN SCH (16:15)
[2020-06-08] MEDS ORDERED: FAMOTIDINE 20MG TABLET PO SCH (21:00)
[2020-06-08] MEDS ORDERED: METHYLPREDNISOLONE SOD SUCC 125 MG/2 ML VIAL IV SCH (22:00)
== END 2020-06-08 16:19 | disposition home health service (06) | DRG 417 ==
LOC: ER 05:57 → 6EST 09:54 → EDBEDREQTM 10:04 → EDBEDREQ 10:04 → ENRESERV 10:21
PROVIDERS: ADMIT Internal Medicine; ATTEND Internal Medicine
PROC: 5A1D70Z Performance of Urinary Filtration, Intermittent, Less than 6 Hours Per Day (ICD-10-PCS; 2020-06-04)
PROC: 0FT44ZZ Resection of Gallbladder, Percutaneous Endoscopic Approach (ICD-10-PCS; principal; 2020-06-06)
PROC: 5A1D70Z Performance of Urinary Filtration, Intermittent, Less than 6 Hours Per Day (ICD-10-PCS; 2020-06-07)
DX: K80.62 Calculus of gallbladder and bile duct with acute cholecystitis without obstruction (principal); N18.6 End stage renal disease; J96.00 Acute respiratory failure, unspecified whether with hypoxia or hypercapnia; K85.90 Acute pancreatitis without necrosis or infection, unspecified; I13.2 Hypertensive heart and chronic kidney disease with heart failure and with stage 5 chronic kidney disease, or end stage renal disease; I42.9 Cardiomyopathy, unspecified; J44.1 Chronic obstructive pulmonary disease with (acute) exacerbation; N28.1 Cyst of kidney, acquired; E11.22 Type 2 diabetes mellitus with diabetic chronic kidney disease; E66.9 Obesity, unspecified; E78.5 Hyperlipidemia, unspecified; I95.3 Hypotension of hemodialysis; I25.10 Atherosclerotic heart disease of native coronary artery without angina pectoris; E11.40 Type 2 diabetes mellitus with diabetic neuropathy, unspecified; M19.90 Unspecified osteoarthritis, unspecified site; I50.9 Heart failure, unspecified; D64.9 Anemia, unspecified; I27.21 Secondary pulmonary arterial hypertension; I27.29 Other secondary pulmonary hypertension; K21.9 Gastro-esophageal reflux disease without esophagitis; Z99.2 Dependence on renal dialysis; Z95.5 Presence of coronary angioplasty implant and graft; Z88.8 Allergy status to other drugs, medicaments and biological substances; Z68.31 Body mass index [BMI] 31.0-31.9, adult; Z03.818 Encounter for observation for suspected exposure to other biological agents ruled out
CPT/HCPCS: 36415; 71045; 73706; 74176; 76700; 78227; 80048; 80053; 80061; 82962; 83036; 83735; 83880; 84484; 85025; 87635; 88304; 93005; 93306; 94640; 99285; A9537; J0690; J1100; J1170; J1815; J2270; J2370; J2405; J2704; J2710; J2765; J3010; J3490; J7030

== ENCOUNTER 2021-01-11 17:32 | Inpatient (IN) | payer MEDICARE, MEDICAID ==
[~2021-01-11] VITALS: Ht 165.1 cm; Wt 85.3 kg
[~2021-01-11 17:32] MED LIST changes: +ALBU2.5V13 IH
[2021-01-11 19:27] LABS: BASOPHILS % 0.6 % (0.0-2.0); EOSINOPHILS % 2.5 % (0.0-5.0); HEMATOCRIT. 33.3 % (36.0-48.0); HEMOGLOBIN. 11.5 g/dL (12.0-16.0); LYMPHOCYTES % 27.5 % (20.0-50.0); MEAN CORPUSCULAR HEMOGLOBIN 33.2 pg (28.0-32.0); MEAN PLATELET VOLUME 8.7 fl (7.4-10.4); NEUTROPHILS % 62.4 % (40.0-76.0); PLATELET 138 x1000/uL (130-400); RED BLOOD CELL COUNT 3.47 mill/uL (4.2-5.4); RED CELL DISTRIBUTION WIDTH 16.2 % (11.6-14.6)
[2021-01-11 19:33] LABS: CHLORIDE 105 mEq/L (98-107)
[2021-01-11] MEDS ORDERED: ASPIRIN 81MG TABLET PO ONE (20:15)
[2021-01-12] VITALS (9 sets, daily range): BP systolic 127–146; BP diastolic 55–86
[2021-01-12] MEDS ORDERED: CLONIDINE 0.1MG TABLET PO PRN (02:15)
[2021-01-12] MEDS ORDERED: LORAZEPAM 0.5MG TABLET PO PRN (02:15)
[2021-01-12] MEDS ORDERED: ACETAMINOPHEN 325MG TABLET PO PRN ×2 (02:15)
[2021-01-12] MEDS ORDERED: ONDANSETRON HCL 4MG/2ML INJ IV PRN (02:15)
[2021-01-12] MEDS ORDERED: ZOLPIDEM TARTRATE 5MG TABLET PO PRN (02:15)
[2021-01-12] MEDS: HYDROCODONE/ACETAMINOPHEN 5/325MG TABLET PO PRN ×2 (04:11→15:02)
[2021-01-12] MEDS: SODIUM CHLORIDE 0.9% INJ 3ML FLUSH IVF SCH ×3 (06:41→22:05)
[2021-01-12] MEDS: LOSARTAN POTASSIUM 25 MG TABLET PO SCH (08:15)
[2021-01-12] MEDS ORDERED: DIPHENHYDRAMINE 25MG CAPSULE PO PRN (09:00)
[2021-01-12] MEDS ORDERED: PANTOPRAZOLE SODIUM 40 MG/VIAL IV SCH (09:00)
[2021-01-12] MEDS: PANTOPRAZOLE SODIUM 40 MG/VIAL IV SCH (18:03)
[2021-01-12] MEDS: METOCLOPRAMIDE HCL 10MG/2ML VIAL IV SCH (18:04)
[2021-01-12] MEDS: ATORVASTATIN CALCIUM 10MG TABLET PO SCH (22:05)
[2021-01-13] VITALS (11 sets, daily range): BP systolic 97–169; BP diastolic 43–96
[2021-01-13] MEDS: METOCLOPRAMIDE HCL 10MG/2ML VIAL IV SCH ×4 (00:14→17:33)
[2021-01-13] MEDS: SODIUM CHLORIDE 0.9% INJ 3ML FLUSH IVF SCH ×3 (06:42→21:09)
[2021-01-13 06:54] LABS: BASOPHILS % 0.7 % (0.0-2.0); EOSINOPHILS % 2.5 % (0.0-5.0); HEMATOCRIT. 31.5 % (36.0-48.0); HEMOGLOBIN. 10.6 g/dL (12.0-16.0); LYMPHOCYTES % 23.2 % (20.0-50.0); MEAN CORPUSCULAR HEMOGLOBIN 32.5 pg (28.0-32.0); MEAN CORPUSCULAR VOLUME 96.5 fL (81.0-99.0); MEAN PLATELET VOLUME 8.8 fl (7.4-10.4); MONOCYTES % 8.8 % (2.0-8.0); NEUTROPHILS % 64.8 % (40.0-76.0); PLATELET 131 x1000/uL (130-400); RED BLOOD CELL COUNT 3.26 mill/uL (4.2-5.4); RED CELL DISTRIBUTION WIDTH 16.1 % (11.6-14.6)
[2021-01-13] MEDS: PANTOPRAZOLE SODIUM 40 MG/VIAL IV SCH ×2 (08:32→17:33)
[2021-01-13] MEDS: LOSARTAN POTASSIUM 25 MG TABLET PO SCH ×2 (08:32→11:27)
[2021-01-13] MEDS ORDERED: SODIUM CHLORIDE 0.9% 10ML VIAL ONE (12:48)
[2021-01-13] MEDS ORDERED: LIDOCAINE HCL 1% 20ML VIAL (Pyxis) INJ ONE (12:48)
[2021-01-13] MEDS ORDERED: IOHEXOL-300 100 ML BOTTLE ONE (14:37)
[2021-01-13] MEDS: ATORVASTATIN CALCIUM 10MG TABLET PO SCH (21:08)
[2021-01-14] VITALS (10 sets, daily range): BP systolic 118–159; BP diastolic 57–79
[2021-01-14] MEDS: METOCLOPRAMIDE HCL 10MG/2ML VIAL IV SCH ×4 (02:03→17:30)
[2021-01-14] MEDS: SODIUM CHLORIDE 0.9% INJ 3ML FLUSH IVF SCH ×3 (05:19→22:00)
[2021-01-14 07:11] LABS: BASOPHILS % 0.7 % (0.0-2.0); EOSINOPHILS % 2.8 % (0.0-5.0); HEMATOCRIT. 29.9 % (36.0-48.0); MEAN CORPUSCULAR HEMOGLOBIN 32.5 pg (28.0-32.0); MEAN CORPUSCULAR VOLUME 96.8 fL (81.0-99.0); MEAN PLATELET VOLUME 8.9 fl (7.4-10.4); MONOCYTES % 8.6 % (2.0-8.0); NEUTROPHILS % 67.9 % (40.0-76.0); PLATELET 133 x1000/uL (130-400); RED BLOOD CELL COUNT 3.09 mill/uL (4.2-5.4); RED CELL DISTRIBUTION WIDTH 15.9 % (11.6-14.6)
[2021-01-14] MEDS: LOSARTAN POTASSIUM 25 MG TABLET PO SCH (08:39)
[2021-01-14] MEDS: PANTOPRAZOLE SODIUM 40 MG/VIAL IV SCH ×2 (08:39→17:30)
[2021-01-14] MEDS: SUCRALFATE 1 G/10 ML UDC PO SCH ×2 (17:30→20:27)
[2021-01-14] MEDS: ATORVASTATIN CALCIUM 10MG TABLET PO SCH (20:27)
[2021-01-15] MEDS: METOCLOPRAMIDE HCL 10MG/2ML VIAL IV SCH
[2021-01-15 05:45] VITALS: BP 142/86
[2021-01-15 06:00] VITALS: BP 142/86
[2021-01-15] MEDS ORDERED: FAMOTIDINE 20MG/2ML VIAL IV SCH (09:00)
[2021-01-25 15:11] LABS: BARBITURATE SCREEN Negative ug/mL (Cutoff:0.1); BENZODIAZEPINE SCREEN Negative ng/mL (Cutoff:20); OPIATES SCREEN ++POSITIVE++ ng/mL (Cutoff:5); PHENCYCLIDINE SCREEN Negative ng/mL (Cutoff:8)
== END 2021-01-15 06:00 | disposition home health service (06) | DRG 291 ==
LOC: ER 17:32 → 5EST 21:37 → EDBEDREQ 21:38 → EDBEDREQTM 21:38 → ENRESERV 22:59
PROVIDERS: ADMIT Internal Medicine; ATTEND Internal Medicine
PROC: 5A1D70Z Performance of Urinary Filtration, Intermittent, Less than 6 Hours Per Day (ICD-10-PCS; principal; 2021-01-12)
PROC: 02HV33Z Insertion of Infusion Device into Superior Vena Cava, Percutaneous Approach (ICD-10-PCS; 2021-01-13)
PROC: B518ZZA Fluoroscopy of Superior Vena Cava, Guidance (ICD-10-PCS; 2021-01-13)
PROC: B548ZZA Ultrasonography of Superior Vena Cava, Guidance (ICD-10-PCS; 2021-01-13)
PROC: 5A1D70Z Performance of Urinary Filtration, Intermittent, Less than 6 Hours Per Day (ICD-10-PCS; 2021-01-14)
DX: I13.2 Hypertensive heart and chronic kidney disease with heart failure and with stage 5 chronic kidney disease, or end stage renal disease (principal); N18.6 End stage renal disease; I50.33 Acute on chronic diastolic (congestive) heart failure; J84.9 Interstitial pulmonary disease, unspecified; K57.90 Diverticulosis of intestine, part unspecified, without perforation or abscess without bleeding; J44.9 Chronic obstructive pulmonary disease, unspecified; I27.21 Secondary pulmonary arterial hypertension; E78.5 Hyperlipidemia, unspecified; I45.10 Unspecified right bundle-branch block; G89.29 Other chronic pain; R10.9 Unspecified abdominal pain; K21.9 Gastro-esophageal reflux disease without esophagitis; I25.10 Atherosclerotic heart disease of native coronary artery without angina pectoris; E11.40 Type 2 diabetes mellitus with diabetic neuropathy, unspecified; Z86.16 Personal history of COVID-19; E11.51 Type 2 diabetes mellitus with diabetic peripheral angiopathy without gangrene; Z20.822 Contact with and (suspected) exposure to COVID-19; R07.89 Other chest pain; D64.9 Anemia, unspecified; E66.3 Overweight; Z68.31 Body mass index [BMI] 31.0-31.9, adult; E11.22 Type 2 diabetes mellitus with diabetic chronic kidney disease; Z99.2 Dependence on renal dialysis; Z95.5 Presence of coronary angioplasty implant and graft; Z90.49 Acquired absence of other specified parts of digestive tract; Z87.891 Personal history of nicotine dependence; Z88.6 Allergy status to analgesic agent; Z79.899 Other long term (current) drug therapy; Z87.11 Personal history of peptic ulcer disease; Z98.49 Cataract extraction status, unspecified eye; Z87.01 Personal history of pneumonia (recurrent); Z79.891 Long term (current) use of opiate analgesic; Z99.3 Dependence on wheelchair
CPT/HCPCS: 36415; 36573; 71045; 71275; 80048; 80053; 80307; 83735; 83880; 84484; 85025; 87426; 93005; 93306; 99291; C1725; C9113; J2765; J3490; Q9967

== ENCOUNTER 2021-06-12 12:04 | Inpatient (IN) | payer MEDICARE, MEDICAID ==
[~2021-06-12] VITALS: Ht 165.1 cm; Wt 78.3 kg
[~2021-06-12 12:04] MED LIST changes: +SACU1TAB7 PO
[2021-06-12] MEDS: AMLODIPINE 5MG TABLET PO SCH (13:45)
[2021-06-12] MEDS ORDERED: LIDOCAINE HCL 1% 20ML VIAL (Pyxis) INJ ONE (14:31)
[2021-06-12 16:29] LABS: BASOPHILS % 0.8 % (0.0-2.0); EOSINOPHILS % 2.5 % (0.0-5.0); HEMATOCRIT. 31.9 % (36.0-48.0); LYMPHOCYTES % 24.5 % (20.0-50.0); MEAN CORPUSCULAR HEMOGLOBIN 33.7 pg (28.0-32.0); MEAN CORPUSCULAR VOLUME 98.1 fL (81.0-99.0); MEAN PLATELET VOLUME 8.5 fl (7.4-10.4); MONOCYTES % 11.8 % (2.0-8.0); NEUTROPHILS % 60.4 % (40.0-76.0); PLATELET 144 x1000/uL (130-400); RED BLOOD CELL COUNT 3.25 mill/uL (4.2-5.4); RED CELL DISTRIBUTION WIDTH 14.1 % (11.6-14.6)
[2021-06-12 16:34] LABS: CHLORIDE 101 mEq/L (98-107)
[2021-06-12 16:41] LABS: LDL CHOLESTEROL 67 mg/dL (5-100)
[2021-06-12 16:42] LABS: HDL CHOLESTEROL 48 mg/dL (40-59)
[2021-06-12] MEDS: ENOXAPARIN 30MG/0.3ML SYR SUBCUT SCH (21:16)
[2021-06-13] VITALS (17 sets, daily range): BP systolic 92–133; BP diastolic 56–87
[2021-06-13] MEDS ORDERED: MORPHINE SULFATE 2 MG/ML CPJ (NOT FOR IM USE) IV PRN ×2 (04:30→09:30)
[2021-06-13] MEDS ORDERED: MAGNESIUM/ALUMINUM HYDROXIDE/SIMETHICONE 30ML UDC PO PRN (04:30)
[2021-06-13] MEDS ORDERED: NALOXONE HCL 0.4MG/ML VIAL IV PRN (04:30)
[2021-06-13 05:12] LABS: BASOPHILS % 0.8 % (0.0-2.0); HEMATOCRIT. 32.4 % (36.0-48.0); LYMPHOCYTES % 26.4 % (20.0-50.0); MEAN CORPUSCULAR HEMOGLOBIN 33.5 pg (28.0-32.0); MEAN CORPUSCULAR VOLUME 98.3 fL (81.0-99.0); MEAN PLATELET VOLUME 8.4 fl (7.4-10.4); MONOCYTES % 12.5 % (2.0-8.0); NEUTROPHILS % 57.3 % (40.0-76.0); PLATELET 157 x1000/uL (130-400); RED BLOOD CELL COUNT 3.29 mill/uL (4.2-5.4); RED CELL DISTRIBUTION WIDTH 13.9 % (11.6-14.6)
[2021-06-13 05:19] LABS: CHLORIDE 99 mEq/L (98-107)
[2021-06-13] MEDS ORDERED: ASPIRIN/SOD BICARB/CITRIC ACID 324MG TAB EFF ONE (07:57)
[2021-06-13] MEDS ORDERED: IODIXANOL 320MG/ML 200ML BOTTLE ONE (08:10)
[2021-06-13] MEDS ORDERED: LIDOCAINE HCL 1% 20ML VIAL (Pyxis) INJ ONE (08:10)
[2021-06-13] MEDS ORDERED: MIDAZOLAM HCL 2 MG/2 ML VIAL ONE (08:11)
[2021-06-13] MEDS ORDERED: FENTANYL CITRATE/PF 50MCG/ML 2ML VIAL ONE (08:11)
[2021-06-13] MEDS ORDERED: ONDANSETRON HCL 4MG/2ML INJ ONE (08:17)
[2021-06-13] MEDS ORDERED: NALOXONE HCL 0.4 MG/ML 1ML VIAL ONE (08:37)
[2021-06-13] MEDS ORDERED: FLUMAZENIL 0.1 MG/ML 5ML VIAL IV ONE (08:37)
[2021-06-13] MEDS ORDERED: IOHEXOL-300 100 ML BOTTLE ONE (09:06)
[2021-06-13] MEDS ORDERED: IODIXANOL 320MG/ML 100 ML BOTTLE IV ONE (09:06)
[2021-06-13] MEDS ORDERED: CLOPIDOGREL 75MG TABLET ONE (09:16)
[2021-06-13] MEDS ORDERED: ACETAMINOPHEN 325MG TABLET PO PRN (09:30)
[2021-06-13] MEDS ORDERED: ONDANSETRON HCL 4MG/2ML INJ IV PRN (09:30)
[2021-06-13] MEDS ORDERED: ATROPINE SULFATE 1MG/10ML SYR IV PRN (09:30)
[2021-06-13] MEDS: PANTOPRAZOLE SODIUM 40 MG/VIAL IV SCH (11:24)
[2021-06-13] MEDS: AMLODIPINE 5MG TABLET PO SCH (11:24)
[2021-06-13] MEDS ORDERED: HEPARIN SODIUM 1,000 UNIT/1ML VIAL IV ONE (12:00)
[2021-06-13] MEDS ORDERED: NITROGLYCERIN 50MCG/ML 10ML VIAL (CATH LAB) IV ONE (12:00)
[2021-06-13] MEDS ORDERED: PHENYLEPHRINE 100MCG/ML 10ML VIAL (CATH LAB) IV ONE (12:00)
[2021-06-13] MEDS ORDERED: NICARDIPINE 100MCG/ML 10ML VIAL (CATH LAB) IV ONE (12:00)
[2021-06-13 13:31] LABS: HEPATITIS B SURFACE ANTIGEN NEGATIVE
[2021-06-13 13:57] LABS: HEPATITIS A AB IGM NEGATIVE (NEGATIVE)
[2021-06-13] MEDS: ENOXAPARIN 30MG/0.3ML SYR SUBCUT SCH (21:00)
[2021-06-14] VITALS: BP 93/55
[2021-06-14 02:00] VITALS: BP 106/56
[2021-06-14 04:00] VITALS: BP 117/60
[2021-06-14 06:00] VITALS: BP 97/53
[2021-06-14 07:19] LABS: BASOPHILS % 0.5 % (0.0-2.0); EOSINOPHILS % 2.7 % (0.0-5.0); HEMATOCRIT. 32.7 % (36.0-48.0); HEMOGLOBIN. 11.1 g/dL (12.0-16.0); LYMPHOCYTES % 15.7 % (20.0-50.0); MEAN CORPUSCULAR HEMOGLOBIN 33.5 pg (28.0-32.0); MEAN CORPUSCULAR VOLUME 98.1 fL (81.0-99.0); MEAN PLATELET VOLUME 8.4 fl (7.4-10.4); MONOCYTES % 10.9 % (2.0-8.0); NEUTROPHILS % 70.2 % (40.0-76.0); PLATELET 150 x1000/uL (130-400); RED BLOOD CELL COUNT 3.33 mill/uL (4.2-5.4)
[2021-06-14 08:00] VITALS: BP 120/69
[2021-06-14] MEDS: PANTOPRAZOLE SODIUM 40 MG/VIAL IV SCH (08:39)
[2021-06-14] MEDS: AMLODIPINE 5MG TABLET PO SCH ×2 (08:39→08:43)
[2021-06-14] MEDS ORDERED: ASPIRIN 81MG TABLET PO SCH (09:00)
[2021-06-14] MEDS ORDERED: CLOPIDOGREL 75MG TABLET PO SCH (09:00)
[2021-06-14 10:00] VITALS: BP 116/69
== END 2021-06-14 12:02 | disposition home or self-care (01) | DRG 246 ==
LOC: ER 12:04 → MICUSO 21:16 → 8WST 06-13 08:08 → 3WST 06-13 10:56
PROVIDERS: ADMIT Internal Medicine; ATTEND Internal Medicine
PROC: 02HV33Z Insertion of Infusion Device into Superior Vena Cava, Percutaneous Approach (ICD-10-PCS; 2021-06-12)
PROC: B548ZZA Ultrasonography of Superior Vena Cava, Guidance (ICD-10-PCS; 2021-06-12)
PROC: 027035Z Dilation of Coronary Artery, One Artery with Two Drug-eluting Intraluminal Devices, Percutaneous Approach (ICD-10-PCS; principal; 2021-06-13)
PROC: 4A023N7 Measurement of Cardiac Sampling and Pressure, Left Heart, Percutaneous Approach (ICD-10-PCS; 2021-06-13)
PROC: B2111ZZ Fluoroscopy of Multiple Coronary Arteries using Low Osmolar Contrast (ICD-10-PCS; 2021-06-13)
PROC: B2151ZZ Fluoroscopy of Left Heart using Low Osmolar Contrast (ICD-10-PCS; 2021-06-13)
PROC: 5A1D70Z Performance of Urinary Filtration, Intermittent, Less than 6 Hours Per Day (ICD-10-PCS; 2021-06-13)
DX: I25.110 Atherosclerotic heart disease of native coronary artery with unstable angina pectoris (principal); N18.6 End stage renal disease; I13.2 Hypertensive heart and chronic kidney disease with heart failure and with stage 5 chronic kidney disease, or end stage renal disease; E11.22 Type 2 diabetes mellitus with diabetic chronic kidney disease; E78.5 Hyperlipidemia, unspecified; I27.21 Secondary pulmonary arterial hypertension; I27.81 Cor pulmonale (chronic); I45.10 Unspecified right bundle-branch block; I50.9 Heart failure, unspecified; J44.9 Chronic obstructive pulmonary disease, unspecified; Z20.822 Contact with and (suspected) exposure to COVID-19; K21.9 Gastro-esophageal reflux disease without esophagitis; E11.40 Type 2 diabetes mellitus with diabetic neuropathy, unspecified; Z87.891 Personal history of nicotine dependence; Z99.2 Dependence on renal dialysis; Z88.1 Allergy status to other antibiotic agents; Z79.899 Other long term (current) drug therapy
CPT/HCPCS: 36415; 71045; 76937; 80048; 80053; 80061; 82962; 83735; 83880; 84484; 85025; 85347; 86705; 86709; 86803; 87340; 87426; 92928; 93005; 93306; 93458; 99285; C1725; C1769; C1874; C1887; C1893; C9113; J1644; J2250; J2270; J2310; J2370; J2405; J3010; J3490; Q9967

== ENCOUNTER 2021-07-08 15:03 | Inpatient (IN) | payer MEDICARE, MEDICAID ==
[~2021-07-08] VITALS: Ht 165.1 cm; Wt 83.7 kg
[2021-07-08] MEDS ORDERED: ONDANSETRON HCL 4MG/2ML INJ IV STA (16:09)
[2021-07-08] MEDS ORDERED: MORPHINE SULFATE 4 MG/ML CPJ (NOT FOR IM USE) IV STA (16:09)
[2021-07-08 16:31] LABS: BASOPHILS % 0.9 % (0.0-2.0); HEMATOCRIT. 32.5 % (36.0-48.0); HEMOGLOBIN. 11.4 g/dL (12.0-16.0); MEAN CORPUSCULAR HEMOGLOBIN 33.8 pg (28.0-32.0); MEAN CORPUSCULAR VOLUME 96.7 fL (81.0-99.0); MEAN PLATELET VOLUME 8.8 fl (7.4-10.4); MONOCYTES % 7.8 % (2.0-8.0); NEUTROPHILS % 67.3 % (40.0-76.0); PLATELET 155 x1000/uL (130-400); RED BLOOD CELL COUNT 3.36 mill/uL (4.2-5.4); RED CELL DISTRIBUTION WIDTH 13.9 % (11.6-14.6)
[2021-07-08 16:39] LABS: CHLORIDE 96 mEq/L (98-107)
[2021-07-08] MEDS ORDERED: CLONIDINE 0.1MG TABLET PO PRN (18:15)
[2021-07-08] MEDS ORDERED: DIPHENHYDRAMINE 50MG/ML VIAL IV PRN (18:15)
[2021-07-08] MEDS ORDERED: IPRATROPIUM/ALBUTEROL 0.5-3(2.5)MG/3ML NEB HHN PRN (18:15)
[2021-07-08] MEDS ORDERED: GUAIFENESIN 200MG/10ML SUGAR FREE UDC PO PRN (18:15)
[2021-07-08] MEDS ORDERED: ACETAMINOPHEN 325MG TABLET PO PRN ×2 (18:15)
[2021-07-08] MEDS ORDERED: LORAZEPAM 0.5MG TABLET PO PRN (18:15)
[2021-07-08] MEDS ORDERED: HYDRALAZINE 20MG/ML VIAL IV PRN (20:00)
[2021-07-08 20:24] LABS: HEPATITIS B SURFACE ANTIGEN NEGATIVE
[2021-07-08] MEDS: SODIUM CHLORIDE 0.9% INJ 3ML FLUSH IVF SCH (22:00)
[2021-07-09] MEDS: PANTOPRAZOLE SODIUM 40 MG/VIAL IV SCH ×2 (00:21→10:12)
[2021-07-09 03:00] VITALS: BP 145/76
[2021-07-09 03:21] VITALS: BP 153/45
[2021-07-09] MEDS: SODIUM CHLORIDE 0.9% INJ 3ML FLUSH IVF SCH ×3 (05:32→20:40)
[2021-07-09 08:00] VITALS: BP 162/62
[2021-07-09] MEDS ORDERED: PANTOPRAZOLE SODIUM 40 MG/VIAL IV SCH (09:00)
[2021-07-09] MEDS: CLOPIDOGREL 75MG TABLET PO SCH ×2 (10:12→15:36)
[2021-07-09] MEDS: AMLODIPINE 5MG TABLET PO SCH (10:12)
[2021-07-09] MEDS: ASPIRIN 81MG EC TABLET PO SCH ×2 (10:12→15:36)
[2021-07-09 12:00] VITALS: BP_SYST 113; BP_SYST 158; BP_DIAS 72; BP_DIAS 85
[2021-07-09] MEDS: HYDROCODONE/ACETAMINOPHEN 10/325MG TABLET PO PRN (14:30)
[2021-07-09 16:00] VITALS: BP 152/68
[2021-07-09 20:00] VITALS: BP 130/63
[2021-07-10] VITALS (7 sets, daily range): BP systolic 113–145; BP diastolic 48–79
[2021-07-10] MEDS: SODIUM CHLORIDE 0.9% INJ 3ML FLUSH IVF SCH ×3 (05:46→22:29)
[2021-07-10] MEDS: PANTOPRAZOLE SODIUM 40 MG/VIAL IV SCH (08:09)
[2021-07-10] MEDS: ONDANSETRON HCL 4MG/2ML INJ IV PRN (08:09)
[2021-07-10] MEDS: ASPIRIN 81MG EC TABLET PO SCH (08:09)
[2021-07-10] MEDS: AMLODIPINE 5MG TABLET PO SCH (08:09)
[2021-07-10] MEDS: CLOPIDOGREL 75MG TABLET PO SCH (08:09)
[2021-07-10] MEDS: HYDROCODONE/ACETAMINOPHEN 10/325MG TABLET PO PRN (11:40)
[2021-07-10 17:52] LABS: HEPATITIS B SURFACE ANTIGEN NEGATIVE
[2021-07-11] VITALS: BP 126/45
[2021-07-11 04:00] VITALS: BP 144/51
[2021-07-11] MEDS: SODIUM CHLORIDE 0.9% INJ 3ML FLUSH IVF SCH ×2 (07:16→21:04)
[2021-07-11 08:00] VITALS: BP 133/60
[2021-07-11] MEDS: PANTOPRAZOLE SODIUM 40 MG/VIAL IV SCH (09:00)
[2021-07-11] MEDS: CLOPIDOGREL 75MG TABLET PO SCH (09:00)
[2021-07-11] MEDS: ASPIRIN 81MG EC TABLET PO SCH (09:00)
[2021-07-11] MEDS: AMLODIPINE 5MG TABLET PO SCH (09:25)
[2021-07-11 12:00] VITALS: BP 142/79
[2021-07-11] MEDS: ONDANSETRON HCL 4MG/2ML INJ IV PRN (13:22)
[2021-07-11 16:00] VITALS: BP 135/80
[2021-07-11 20:00] VITALS: BP 135/53
[2021-07-12] VITALS (7 sets, daily range): BP systolic 105–128; BP diastolic 42–67
[2021-07-12] MEDS: SODIUM CHLORIDE 0.9% INJ 3ML FLUSH IVF SCH ×3 (05:12→13:33)
[2021-07-12] MEDS: ASPIRIN 81MG EC TABLET PO SCH (08:16)
[2021-07-12] MEDS: CLOPIDOGREL 75MG TABLET PO SCH (08:16)
[2021-07-12] MEDS: AMLODIPINE 5MG TABLET PO SCH (08:16)
[2021-07-12] MEDS: PANTOPRAZOLE SODIUM 40 MG/VIAL IV SCH (08:16)
[2021-07-12 17:16] LABS: HEPATITIS B SURFACE ANTIGEN NEGATIVE
== END 2021-07-12 18:35 | disposition home or self-care (01) | DRG 391 ==
LOC: ER 15:03 → 8WST 17:17 → ENRESERV 23:29 → 8WST 07-11 21:50
PROVIDERS: ADMIT Internal Medicine; ATTEND Internal Medicine
PROC: 5A1D70Z Performance of Urinary Filtration, Intermittent, Less than 6 Hours Per Day (ICD-10-PCS; principal; 2021-07-09)
PROC: 5A1D70Z Performance of Urinary Filtration, Intermittent, Less than 6 Hours Per Day (ICD-10-PCS; 2021-07-11)
DX: K21.9 Gastro-esophageal reflux disease without esophagitis (principal); N18.6 End stage renal disease; I13.2 Hypertensive heart and chronic kidney disease with heart failure and with stage 5 chronic kidney disease, or end stage renal disease; I50.30 Unspecified diastolic (congestive) heart failure; R10.9 Unspecified abdominal pain; I25.10 Atherosclerotic heart disease of native coronary artery without angina pectoris; J44.9 Chronic obstructive pulmonary disease, unspecified; E11.22 Type 2 diabetes mellitus with diabetic chronic kidney disease; E11.40 Type 2 diabetes mellitus with diabetic neuropathy, unspecified; E78.5 Hyperlipidemia, unspecified; I95.3 Hypotension of hemodialysis; G47.33 Obstructive sleep apnea (adult) (pediatric); E11.51 Type 2 diabetes mellitus with diabetic peripheral angiopathy without gangrene; G89.29 Other chronic pain; R53.81 Other malaise; I80.3 Phlebitis and thrombophlebitis of lower extremities, unspecified; D64.9 Anemia, unspecified; Z95.5 Presence of coronary angioplasty implant and graft; Z98.49 Cataract extraction status, unspecified eye; Z79.899 Other long term (current) drug therapy; Z90.49 Acquired absence of other specified parts of digestive tract; Z99.2 Dependence on renal dialysis; Z79.891 Long term (current) use of opiate analgesic; Z99.3 Dependence on wheelchair; Z79.02 Long term (current) use of antithrombotics/antiplatelets; Z79.82 Long term (current) use of aspirin; Z88.8 Allergy status to other drugs, medicaments and biological substances
CPT/HCPCS: 36415; 71045; 74176; 80053; 83880; 84484; 85025; 86705; 86709; 86803; 87340; 93005; 99285; C9113; J2270; J2405; A4315

== ENCOUNTER 2021-07-24 10:22 | Inpatient (IN) | payer MEDICARE, MEDICAID ==
[~2021-07-24] VITALS: Ht 165.1 cm; Wt 84.4 kg
[2021-07-24] MEDS ORDERED: ALBUTEROL (0.083%) 2.5MG/3ML NEB HHN ONE (11:15)
[2021-07-24] MEDS ORDERED: VISCOUS LIDOCAINE 2% 15 ML UDC MM ONE (11:15)
[2021-07-24] MEDS ORDERED: MAGNESIUM/ALUMINUM HYDROXIDE/SIMETHICONE 30ML UDC PO ONE (11:15)
[2021-07-24] MEDS ORDERED: LIDOCAINE HCL 1% 20ML VIAL (Pyxis) INJ ONE (13:06)
[2021-07-24 14:20] LABS: BASOPHILS % 0.7 % (0.0-2.0); HEMATOCRIT. 27.6 % (36.0-48.0); HEMOGLOBIN. 9.8 g/dL (12.0-16.0); LYMPHOCYTES % 19.4 % (20.0-50.0); MEAN CORPUSCULAR VOLUME 95.7 fL (81.0-99.0); MEAN PLATELET VOLUME 8.3 fl (7.4-10.4); MONOCYTES % 6.7 % (2.0-8.0); NEUTROPHILS % 72.2 % (40.0-76.0); PLATELET 174 x1000/uL (130-400); RED BLOOD CELL COUNT 2.89 mill/uL (4.2-5.4); RED CELL DISTRIBUTION WIDTH 13.9 % (11.6-14.6)
[2021-07-24 14:26] LABS: CHLORIDE 100 mEq/L (98-107)
[2021-07-24 14:30] LABS: ETHANOL BLOOD < 10 mg/dL
[2021-07-24] MEDS ORDERED: FUROSEMIDE 40MG/4ML VIAL IVP NR (14:45)
[2021-07-24] MEDS ORDERED: MORPHINE SULFATE 4 MG/ML CPJ (NOT FOR IM USE) IV ONE (15:00)
[2021-07-24] MEDS ORDERED: MAGNESIUM HYDROXIDE 400MG/5ML 30ML UDC PO PRN (17:45)
[2021-07-24] MEDS ORDERED: ACETAMINOPHEN 325MG TABLET PO PRN ×2 (17:45)
[2021-07-24] MEDS ORDERED: MAGNESIUM/ALUMINUM HYDROXIDE/SIMETHICONE 30ML UDC PO PRN (17:45)
[2021-07-24] MEDS ORDERED: HYDROCODONE/ACETAMINOPHEN 10/325MG TABLET PO PRN (17:45)
[2021-07-24] MEDS ORDERED: ONDANSETRON HCL 4MG/2ML INJ IV PRN (17:45)
[2021-07-24] MEDS ORDERED: HYDRALAZINE 20MG/ML VIAL IV PRN (17:45)
[2021-07-24] MEDS ORDERED: ZOLPIDEM TARTRATE 5MG TABLET PO PRN ×2 (17:45)
[2021-07-24] MEDS ORDERED: IPRATROPIUM/ALBUTEROL 0.5-3(2.5)MG/3ML NEB HHN PRN (17:45)
[2021-07-24] MEDS ORDERED: LORAZEPAM 0.5MG TABLET PO PRN (17:45)
[2021-07-24] MEDS ORDERED: GUAIFENESIN 200MG/10ML SUGAR FREE UDC PO PRN (17:45)
[2021-07-24] MEDS: CLONIDINE 0.1MG TABLET PO PRN (18:11)
[2021-07-24] MEDS ORDERED: NALOXONE HCL 0.4MG/ML VIAL IV PRN (22:00)
[2021-07-24] MEDS: SODIUM CHLORIDE 0.9% INJ 3ML FLUSH IVF SCH (22:00)
[2021-07-24 23:00] VITALS: BP 166/71
[2021-07-25] VITALS: BP 142/54
[2021-07-25] MEDS ORDERED: ASPI-1406 PO (00:19)
[2021-07-25] MEDS ORDERED: AMOX1TAB49 PO (00:25)
[2021-07-25] MEDS ORDERED: SILVERDENE CREAM EXT (00:25)
[2021-07-25] MEDS: PANTOPRAZOLE 40MG DR TABLET PO SCH ×3 (03:01→21:40)
[2021-07-25] MEDS: IPRATROPIUM/ALBUTEROL 0.5-3(2.5)MG/3ML NEB HHN SCH ×6 (03:57→21:11)
[2021-07-25 04:00] VITALS: BP 137/59
[2021-07-25] MEDS: SODIUM CHLORIDE 0.9% INJ 3ML FLUSH IVF SCH ×3 (06:37→21:43)
[2021-07-25 08:00] VITALS: BP 122/63
[2021-07-25] MEDS: ASPIRIN 81MG EC TABLET PO SCH (09:47)
[2021-07-25] MEDS: AMLODIPINE 5MG TABLET PO SCH (09:48)
[2021-07-25] MEDS: DOCUSATE SODIUM 100MG CAPSULE PO SCH ×2 (09:48→17:00)
[2021-07-25] MEDS: CLOPIDOGREL 75MG TABLET PO SCH (09:48)
[2021-07-25 10:33] LABS: BG BASE EXCESS 3.8 mmol/L (-2.0-2.0); BG CARBOXYHEMOGLOBIN 0.6 % (0.5-1.5); BG DEOXYHEMOGLOBIN 10.1 % (0.0-5.0); BG FRACTION INSPIRED OXYGEN 28; BG HCO3 ACT 27.9 mmol/L (22.0-26.0); BG METHEMOGLOBIN 0.1 % (0.0-1.5); BG OXYGEN SATURATION 89.8 % (92.0-98.5); BG OXYHEMOGLOBIN 89.2 % (94.0-97.0); BG PCO2 39.8 mmHg (35.0-45.0); BG PH 7.463 (7.350-7.450); BG PO2 55.1 mmHg (75.0-100.0); BG SAMPLE SITE RIGHT BRACHIAL; BG TOTAL HEMOGLOBIN 10.3 g/dL (12.0-18.0); BG VENT MODE NASAL CANNULA
[2021-07-25 12:00] VITALS: BP 124/49
[2021-07-25 16:00] VITALS: BP 145/69
[2021-07-25 16:44] LABS: HEPATITIS B SURFACE ANTIGEN NEGATIVE
[2021-07-25 20:00] VITALS: BP 147/54
[2021-07-25] MEDS: EPOETIN ALFA-EPBX 10,000 UNIT/ML VIAL SUBCUT SCH (21:49)
[2021-07-25] MEDS: DIPHENHYDRAMINE 50MG/ML VIAL IV PRN (21:57)
[2021-07-26] VITALS: BP 116/52
[2021-07-26] MEDS: IPRATROPIUM/ALBUTEROL 0.5-3(2.5)MG/3ML NEB HHN SCH ×7 (01:08→22:11)
[2021-07-26 04:00] VITALS: BP 164/62
[2021-07-26] MEDS: CLONIDINE 0.1MG TABLET PO PRN (06:19)
[2021-07-26] MEDS: PANTOPRAZOLE 40MG DR TABLET PO SCH ×2 (06:19→21:44)
[2021-07-26] MEDS: SODIUM CHLORIDE 0.9% INJ 3ML FLUSH IVF SCH ×3 (06:19→21:44)
[2021-07-26 08:43] VITALS: BP 143/56
[2021-07-26] MEDS: DOCUSATE SODIUM 100MG CAPSULE PO SCH ×2 (08:45→17:00)
[2021-07-26] MEDS: AMLODIPINE 5MG TABLET PO SCH (08:46)
[2021-07-26] MEDS: ASPIRIN 81MG EC TABLET PO SCH (08:46)
[2021-07-26] MEDS: CLOPIDOGREL 75MG TABLET PO SCH (08:46)
[2021-07-26 12:00] VITALS: BP 142/60
[2021-07-26 12:20] LABS: HEPATITIS B SURFACE ANTIGEN NEGATIVE
[2021-07-26 20:00] VITALS: BP 134/65
[2021-07-26] MEDS: DIPHENHYDRAMINE 50MG/ML VIAL IV PRN (22:56)
[2021-07-27] VITALS: BP 119/52
[2021-07-27] MEDS: IPRATROPIUM/ALBUTEROL 0.5-3(2.5)MG/3ML NEB HHN SCH ×4 (00:21→21:07)
[2021-07-27 04:00] VITALS: BP 143/85
[2021-07-27] MEDS: SODIUM CHLORIDE 0.9% INJ 3ML FLUSH IVF SCH ×3 (06:03→21:45)
[2021-07-27] MEDS: PANTOPRAZOLE 40MG DR TABLET PO SCH ×2 (06:24→21:44)
[2021-07-27 07:49] LABS: BASOPHILS % 0.3 % (0.0-2.0); EOSINOPHILS % 2.3 % (0.0-5.0); HEMOGLOBIN. 9.6 g/dL (12.0-16.0); LYMPHOCYTES % 16.1 % (20.0-50.0); MEAN CORPUSCULAR HEMOGLOBIN 33.4 pg (28.0-32.0); MEAN PLATELET VOLUME 8.5 fl (7.4-10.4); MONOCYTES % 7.8 % (2.0-8.0); NEUTROPHILS % 73.5 % (40.0-76.0); PLATELET 185 x1000/uL (130-400); RED BLOOD CELL COUNT 2.89 mill/uL (4.2-5.4); RED CELL DISTRIBUTION WIDTH 14.6 % (11.6-14.6)
[2021-07-27] MEDS: AMLODIPINE 5MG TABLET PO SCH (08:30)
[2021-07-27] MEDS: DOCUSATE SODIUM 100MG CAPSULE PO SCH ×2 (08:30→17:00)
[2021-07-27 12:00] VITALS: BP 121/73
[2021-07-27 16:27] VITALS: BP 143/70
[2021-07-27 20:00] VITALS: BP 137/50
[2021-07-27] MEDS: EPOETIN ALFA-EPBX 10,000 UNIT/ML VIAL SUBCUT SCH (21:45)
[2021-07-28] VITALS (7 sets, daily range): BP systolic 127–174; BP diastolic 55–80
[2021-07-28] MEDS: IPRATROPIUM/ALBUTEROL 0.5-3(2.5)MG/3ML NEB HHN SCH ×5 (00:15→16:10)
[2021-07-28] MEDS: CLONIDINE 0.1MG TABLET PO PRN (04:59)
[2021-07-28] MEDS: SODIUM CHLORIDE 0.9% INJ 3ML FLUSH IVF SCH ×3 (05:13→21:13)
[2021-07-28 05:34] LABS: BASOPHILS % 0.3 % (0.0-2.0); EOSINOPHILS % 2.2 % (0.0-5.0); HEMOGLOBIN. 9.2 g/dL (12.0-16.0); LYMPHOCYTES % 17.5 % (20.0-50.0); MEAN CORPUSCULAR HEMOGLOBIN 32.8 pg (28.0-32.0); MEAN CORPUSCULAR VOLUME 99.2 fL (81.0-99.0); MEAN PLATELET VOLUME 8.3 fl (7.4-10.4); MONOCYTES % 6.5 % (2.0-8.0); NEUTROPHILS % 73.5 % (40.0-76.0); PLATELET 183 x1000/uL (130-400); RED BLOOD CELL COUNT 2.82 mill/uL (4.2-5.4); RED CELL DISTRIBUTION WIDTH 14.7 % (11.6-14.6)
[2021-07-28] MEDS: PANTOPRAZOLE 40MG DR TABLET PO SCH (06:59)
[2021-07-28] MEDS ORDERED: AMLODIPINE 10MG TABLET PO SCH (09:00)
[2021-07-28] MEDS: DOCUSATE SODIUM 100MG CAPSULE PO SCH ×2 (09:00→17:00)
[2021-07-28] MEDS: CLOPIDOGREL 75MG TABLET PO SCH (09:00)
[2021-07-28] MEDS: ASPIRIN 81MG EC TABLET PO SCH (09:00)
[2021-07-28] MEDS: SILDENAFIL CITRATE 20MG TABLET PO SCH ×2 (14:00→21:18)
[2021-07-29] MEDS ORDERED: FAMOTIDINE 20MG TABLET PO SCH (09:00)
== END 2021-07-28 21:40 | disposition home or self-care (01) | DRG 291 ==
LOC: ER 10:22 → ENRESERV 20:35 → 6WST 22:42
PROVIDERS: ADMIT Internal Medicine; ATTEND Internal Medicine
PROC: 02HV33Z Insertion of Infusion Device into Superior Vena Cava, Percutaneous Approach (ICD-10-PCS; principal; 2021-07-24)
PROC: B548ZZA Ultrasonography of Superior Vena Cava, Guidance (ICD-10-PCS; 2021-07-24)
PROC: 5A1D70Z Performance of Urinary Filtration, Intermittent, Less than 6 Hours Per Day (ICD-10-PCS; 2021-07-25)
PROC: 5A1D70Z Performance of Urinary Filtration, Intermittent, Less than 6 Hours Per Day (ICD-10-PCS; 2021-07-26)
DX: I13.2 Hypertensive heart and chronic kidney disease with heart failure and with stage 5 chronic kidney disease, or end stage renal disease (principal); I50.41 Acute combined systolic (congestive) and diastolic (congestive) heart failure; J96.21 Acute and chronic respiratory failure with hypoxia; N18.6 End stage renal disease; J44.1 Chronic obstructive pulmonary disease with (acute) exacerbation; I95.3 Hypotension of hemodialysis; E11.22 Type 2 diabetes mellitus with diabetic chronic kidney disease; I25.10 Atherosclerotic heart disease of native coronary artery without angina pectoris; E78.5 Hyperlipidemia, unspecified; G89.29 Other chronic pain; I27.21 Secondary pulmonary arterial hypertension; M54.5 Low back pain; I27.81 Cor pulmonale (chronic); I45.10 Unspecified right bundle-branch block; K21.9 Gastro-esophageal reflux disease without esophagitis; R04.0 Epistaxis; E66.3 Overweight; D64.9 Anemia, unspecified; E11.40 Type 2 diabetes mellitus with diabetic neuropathy, unspecified; R10.9 Unspecified abdominal pain; Z95.5 Presence of coronary angioplasty implant and graft; Z99.2 Dependence on renal dialysis; Z88.8 Allergy status to other drugs, medicaments and biological substances; Z79.899 Other long term (current) drug therapy; Z79.82 Long term (current) use of aspirin; Z82.49 Family history of ischemic heart disease and other diseases of the circulatory system; Z83.3 Family history of diabetes mellitus; Z87.891 Personal history of nicotine dependence; Z90.49 Acquired absence of other specified parts of digestive tract; Z95.818 Presence of other cardiac implants and grafts; Z68.31 Body mass index [BMI] 31.0-31.9, adult
CPT/HCPCS: 36415; 36600; 71045; 76937; 80048; 80053; 80320; 82375; 82805; 83605; 83735; 83880; 84484; 85025; 86705; 86709; 86803; 87340; 93005; 93306; 94640; 99291; C1725; C1892; J0885; J1200; J1940; J2270; J3490; J7040; G0480

== ENCOUNTER 2022-11-04 13:45 | Inpatient (IN) | payer MEDICARE, MEDICAID ==
[~2022-11-04] VITALS: Ht 167.6 cm; Wt 84.8 kg
[~2022-11-04 13:45] MED LIST changes: +ALBU90AE INH; +ASPI-1406 PO; +CLOP-31 MT; +P20 PO; +SILVERDENE CREAM EXT
[2022-11-04 15:59] LABS: BASOPHILS % 0.8 % (0.0-2.0); EOSINOPHILS % 0.3 % (0.0-5.0); HEMATOCRIT. 33.9 % (36.0-48.0); HEMOGLOBIN. 11.4 g/dL (12.0-16.0); LYMPHOCYTES % 17.1 % (20.0-50.0); MEAN CORPUSCULAR HEMOGLOBIN 30.9 pg (28.0-32.0); MEAN CORPUSCULAR VOLUME 91.6 fL (81.0-99.0); MEAN PLATELET VOLUME 8.8 fl (7.4-10.4); NEUTROPHILS % 74.8 % (40.0-76.0); PLATELET 159 x1000/uL (130-400); RED CELL DISTRIBUTION WIDTH 15.2 % (11.6-14.6)
[2022-11-04 16:04] LABS: CHLORIDE 93 mEq/L (98-107)
[2022-11-04] MEDS ORDERED: ACETAMINOPHEN 325MG TABLET PO ONE (17:45)
[2022-11-04] MEDS ORDERED: NITROGLYCERIN 0.4MG TABLET SL SL PRN (17:45)
[2022-11-04] MEDS ORDERED: HYDROCODONE/ACETAMINOPHEN 5/325MG TABLET PO ONE (18:00)
[2022-11-04 20:16] LABS: HEPATITIS B SURFACE ANTIGEN NEGATIVE
[2022-11-04] MEDS ORDERED: ONDANSETRON HCL 4MG/2ML INJ IV PRN (20:30)
[2022-11-04] MEDS ORDERED: MAGNESIUM/ALUMINUM HYDROXIDE/SIMETHICONE 30ML UDC PO PRN (20:30)
[2022-11-04] MEDS ORDERED: GUAIFENESIN 200MG/10ML SUGAR FREE UDC PO PRN (20:30)
[2022-11-04] MEDS ORDERED: DOCUSATE SODIUM 100MG CAPSULE PO PRN (20:30)
[2022-11-04] MEDS: PANTOPRAZOLE SODIUM 40 MG/VIAL IV SCH (21:00)
[2022-11-04 21:43] LABS: FOLIC ACID (FOLATE) SERUM >20 ng/mL ng/mL (>5.38); VITAMIN B12 SERUM 992 pg/mL (211-911)
[2022-11-04] MEDS ORDERED: MORPHINE SULFATE 2 MG/ML CPJ (NOT FOR IM USE) IV NR (22:00)
[2022-11-05] MEDS: POTASSIUM CHLORIDE 20MEQ TABLET SR PO NR ×2 (02:13→02:50)
[2022-11-05] MEDS: PANTOPRAZOLE SODIUM 40 MG/VIAL IV SCH ×2 (09:00→20:49)
[2022-11-05 11:38] LABS: BASOPHILS % 0.6 % (0.0-2.0); EOSINOPHILS % 0.4 % (0.0-5.0); HEMOGLOBIN. 10.6 g/dL (12.0-16.0); LYMPHOCYTES % 13.9 % (20.0-50.0); MEAN CORPUSCULAR HEMOGLOBIN 30.5 pg (28.0-32.0); MEAN CORPUSCULAR VOLUME 92.1 fL (81.0-99.0); MEAN PLATELET VOLUME 8.9 fl (7.4-10.4); MONOCYTES % 7.8 % (2.0-8.0); NEUTROPHILS % 77.3 % (40.0-76.0); PLATELET 147 x1000/uL (130-400); RED BLOOD CELL COUNT 3.47 mill/uL (4.2-5.4); RED CELL DISTRIBUTION WIDTH 15.1 % (11.6-14.6)
[2022-11-05 11:42] LABS: CHLORIDE 97 mEq/L (98-107)
[2022-11-05 11:51] LABS: CREATINE KINASE 33 IU/L (26-192); CREATINE KINASE MB FRACTION < 1.0 ng/mL (0.5-3.6)
[2022-11-05 11:57] LABS: HDL CHOLESTEROL 52 mg/dL (40-59); LDL CHOLESTEROL 50 mg/dL (5-100); T4 FREE 1.57 ng/dL (0.76-1.46)
[2022-11-05 15:53] VITALS: BP 158/86
[2022-11-05 16:00] VITALS: BP 166/67
[2022-11-05 16:50] LABS: PLATELET ESTIMATE NORMAL
[2022-11-05] MEDS: IPRATROPIUM/ALBUTEROL 0.5-3(2.5)MG/3ML NEB HHN PRN ×2 (18:37→19:46)
[2022-11-05 20:00] VITALS: BP 178/71
[2022-11-05] MEDS: ACETAMINOPHEN 650MG/20.3ML UDC GT PRN ×2 (21:45→23:17)
[2022-11-05] MEDS: CLONIDINE 0.1MG TABLET PO PRN (21:47)
[2022-11-05] MEDS ORDERED: HYDROCODONE/ACETAMINOPHEN 5/325MG TABLET PO NR (23:00)
[2022-11-06] VITALS (12 sets, daily range): BP systolic 89–164; BP diastolic 50–72
[2022-11-06 07:16] LABS: HEMATOCRIT 30.3 % (36.0-48.0); MEAN CORPUSCULAR HEMOGLOBIN 30.6 pg (28.0-32.0); MEAN CORPUSCULAR VOLUME 92.2 fL (81.0-99.0); PLATELET 153 x1000/uL (130-400); RED BLOOD CELL COUNT 3.28 mill/uL (4.2-5.4); RED CELL DISTRIBUTION WIDTH 15.3 % (11.6-14.6)
[2022-11-06] MEDS ORDERED: ASPIRIN 81MG TABLET PO SCH (07:30)
[2022-11-06 07:52] LABS: D-DIMER 2.79 mg/L FEU (<0.50); INR 1.2; PROTHROMBIN TIME 12.8 sec (9.6-11.0)
[2022-11-06] MEDS: PANTOPRAZOLE SODIUM 40 MG/VIAL IV SCH ×2 (07:59→16:53)
[2022-11-06] MEDS: CLONIDINE 0.1MG TABLET PO PRN (07:59)
[2022-11-06] MEDS ORDERED: NALOXONE HCL 0.4MG/ML VIAL IV PRN (08:30)
[2022-11-06] MEDS: MORPHINE SULFATE 2 MG/ML CPJ (NOT FOR IM USE) IV PRN ×3 (09:27→23:48)
[2022-11-06] MEDS ORDERED: ALBUTEROL (0.083%) 2.5MG/3ML NEB HHN PRN (10:30)
[2022-11-06] MEDS ORDERED: CLOPIDOGREL 75MG TABLET PO SCH (10:30)
[2022-11-06] MEDS ORDERED: ASPIRIN 81MG EC TABLET PO SCH (10:30)
[2022-11-06] MEDS: SACUBITRIL/VALSARTAN 49MG/51MG TABLET PO SCH ×2 (12:00→18:14)
[2022-11-06] MEDS: FAMOTIDINE 20MG TABLET PO SCH (12:03)
[2022-11-06 12:26] LABS: BG BASE EXCESS 4.9 mmol/L (-2.0-2.0); BG CARBOXYHEMOGLOBIN 0.9 % (0.5-1.5); BG DEOXYHEMOGLOBIN 26.4 % (0.0-5.0); BG FRACTION INSPIRED OXYGEN 21; BG HCO3 ACT 29.6 mmol/L (22.0-26.0); BG METHEMOGLOBIN 0.2 % (0.0-1.5); BG OXYGEN SATURATION 73.3 % (92.0-98.5); BG OXYHEMOGLOBIN 72.5 % (94.0-97.0); BG PCO2 43.8 mmHg (35.0-45.0); BG PH 7.447 (7.350-7.450); BG PO2 39.9 mmHg (75.0-100.0); BG SAMPLE SITE RIGHT BRACHIAL; BG TOTAL HEMOGLOBIN 11.4 g/dL (12.0-18.0); BG VENT MODE ROOM AIR
[2022-11-06] MEDS: ASPIRIN 81MG EC TABLET PO SCH (13:00)
[2022-11-06] MEDS: CLOPIDOGREL 75MG TABLET PO SCH (13:00)
[2022-11-06] MEDS: DEXT 5%/0.9% NACL 1,000 ML IV SCH (16:54)
[2022-11-06] MEDS: AMLODIPINE 5MG TABLET PO SCH ×2 (17:00→18:14)
[2022-11-06] MEDS ORDERED: IOHEXOL-300 100 ML BOTTLE ONE (18:33)
[2022-11-07] VITALS: BP 112/59
[2022-11-07 04:00] VITALS: BP 100/49
[2022-11-07 06:32] LABS: HEMATOCRIT 32.9 % (36.0-48.0); HEMOGLOBIN 10.8 g/dL (12.0-16.0); MEAN CORPUSCULAR HEMOGLOBIN 30.7 pg (28.0-32.0); MEAN CORPUSCULAR VOLUME 93.4 fL (81.0-99.0); PLATELET 162 x1000/uL (130-400); RED BLOOD CELL COUNT 3.53 mill/uL (4.2-5.4); RED CELL DISTRIBUTION WIDTH 15.5 % (11.6-14.6)
[2022-11-07 06:38] LABS: BASOPHILS % 0.6 % (0.0-2.0); EOSINOPHILS % 0.9 % (0.0-5.0); HEMATOCRIT. 32.2 % (36.0-48.0); HEMOGLOBIN. 10.6 g/dL (12.0-16.0); MEAN CORPUSCULAR HEMOGLOBIN 30.5 pg (28.0-32.0); MEAN CORPUSCULAR VOLUME 92.8 fL (81.0-99.0); MEAN PLATELET VOLUME 8.9 fl (7.4-10.4); MONOCYTES % 11.9 % (2.0-8.0); NEUTROPHILS % 68.6 % (40.0-76.0); PLATELET 158 x1000/uL (130-400); RED BLOOD CELL COUNT 3.47 mill/uL (4.2-5.4); RED CELL DISTRIBUTION WIDTH 15.1 % (11.6-14.6)
[2022-11-07 08:00] VITALS: BP_SYST 129; BP_SYST 147; BP_DIAS 54; BP_DIAS 73
[2022-11-07] MEDS: SACUBITRIL/VALSARTAN 49MG/51MG TABLET PO SCH ×2 (08:53→17:38)
[2022-11-07] MEDS: CLOPIDOGREL 75MG TABLET PO SCH (08:53)
[2022-11-07] MEDS: FAMOTIDINE 20MG TABLET PO SCH (08:53)
[2022-11-07] MEDS: ASPIRIN 81MG EC TABLET PO SCH (08:53)
[2022-11-07] MEDS: PANTOPRAZOLE SODIUM 40 MG/VIAL IV SCH (08:53)
[2022-11-07] MEDS: AMLODIPINE 5MG TABLET PO SCH ×2 (08:53→17:38)
[2022-11-07] MEDS: MORPHINE SULFATE 2 MG/ML CPJ (NOT FOR IM USE) IV PRN ×2 (08:58→17:38)
[2022-11-07 12:00] VITALS: BP 120/58
[2022-11-07] MEDS: DEXT 5%/0.9% NACL 1,000 ML IV SCH (12:42)
[2022-11-07 16:00] VITALS: BP 118/69
[2022-11-07 20:00] VITALS: BP 115/53
[2022-11-08] VITALS (14 sets, daily range): BP systolic 108–130; BP diastolic 45–77
[2022-11-08] MEDS: IPRATROPIUM/ALBUTEROL 0.5-3(2.5)MG/3ML NEB HHN PRN (00:57)
[2022-11-08] MEDS: MORPHINE SULFATE 2 MG/ML CPJ (NOT FOR IM USE) IV PRN (02:30)
[2022-11-08 07:59] LABS: BASOPHILS % 0.5 % (0.0-2.0); EOSINOPHILS % 2.8 % (0.0-5.0); HEMATOCRIT. 31.7 % (36.0-48.0); HEMOGLOBIN. 10.4 g/dL (12.0-16.0); LYMPHOCYTES % 21.6 % (20.0-50.0); MEAN CORPUSCULAR HEMOGLOBIN 30.3 pg (28.0-32.0); MEAN CORPUSCULAR VOLUME 92.3 fL (81.0-99.0); MEAN PLATELET VOLUME 8.7 fl (7.4-10.4); MONOCYTES % 8.9 % (2.0-8.0); NEUTROPHILS % 66.2 % (40.0-76.0); PLATELET 157 x1000/uL (130-400); RED BLOOD CELL COUNT 3.43 mill/uL (4.2-5.4); RED CELL DISTRIBUTION WIDTH 15.4 % (11.6-14.6)
[2022-11-08] MEDS: AMLODIPINE 5MG TABLET PO SCH (09:00)
[2022-11-08] MEDS: SACUBITRIL/VALSARTAN 49MG/51MG TABLET PO SCH (09:48)
[2022-11-08] MEDS: FAMOTIDINE 20MG TABLET PO SCH (09:48)
[2022-11-08] MEDS: DEXT 5%/0.9% NACL 1,000 ML IV SCH (09:49)
[2022-11-09] MEDS ORDERED: ASPIRIN 81MG EC TABLET PO SCH (09:00)
[2022-11-09] MEDS ORDERED: CLOPIDOGREL 75MG TABLET PO SCH (09:00)
== END 2022-11-08 15:00 | disposition home health service (06) | DRG 291 ==
LOC: ER 14:19 → MICUSO 17:56 → EDBEDREQ 18:14 → 7WST 11-05 15:40
PROVIDERS: ADMIT Internal Medicine; ATTEND Internal Medicine
PROC: 5A1D70Z Performance of Urinary Filtration, Intermittent, Less than 6 Hours Per Day (ICD-10-PCS; principal; 2022-11-06)
PROC: 5A1D70Z Performance of Urinary Filtration, Intermittent, Less than 6 Hours Per Day (ICD-10-PCS; 2022-11-08)
DX: I13.2 Hypertensive heart and chronic kidney disease with heart failure and with stage 5 chronic kidney disease, or end stage renal disease (principal); I50.33 Acute on chronic diastolic (congestive) heart failure; N18.6 End stage renal disease; E44.1 Mild protein-calorie malnutrition; E87.20 Acidosis, unspecified; K29.70 Gastritis, unspecified, without bleeding; E11.22 Type 2 diabetes mellitus with diabetic chronic kidney disease; E87.6 Hypokalemia; J44.9 Chronic obstructive pulmonary disease, unspecified; I27.21 Secondary pulmonary arterial hypertension; I45.10 Unspecified right bundle-branch block; D63.8 Anemia in other chronic diseases classified elsewhere; K43.9 Ventral hernia without obstruction or gangrene; E11.40 Type 2 diabetes mellitus with diabetic neuropathy, unspecified; K21.9 Gastro-esophageal reflux disease without esophagitis; G47.33 Obstructive sleep apnea (adult) (pediatric); I07.1 Rheumatic tricuspid insufficiency; I25.10 Atherosclerotic heart disease of native coronary artery without angina pectoris; E11.51 Type 2 diabetes mellitus with diabetic peripheral angiopathy without gangrene; E78.5 Hyperlipidemia, unspecified; G89.29 Other chronic pain; I25.2 Old myocardial infarction; Z88.6 Allergy status to analgesic agent; Z87.11 Personal history of peptic ulcer disease; Z88.3 Allergy status to other anti-infective agents; Z95.5 Presence of coronary angioplasty implant and graft; Z79.899 Other long term (current) drug therapy; Z99.81 Dependence on supplemental oxygen; Z90.49 Acquired absence of other specified parts of digestive tract; Z83.3 Family history of diabetes mellitus; Z99.2 Dependence on renal dialysis; Z82.49 Family history of ischemic heart disease and other diseases of the circulatory system
CPT/HCPCS: 36415; 36600; 71045; 74018; 74176; 74177; 80048; 80053; 80061; 82375; 82550; 82553; 82607; 82652; 82746; 82805; 83036; 83605; 83735; 83880; 84100; 84145; 84439; 84443; 84481; 84484; 85025; 85027; 85379; 86705; 86709; 86803; 87340; 90935; 93005; 93306; 93970; 99285; C9113; J2270; J2405; J7042; Q9967

== ENCOUNTER 2022-12-14 10:50 | Inpatient (IN) | payer MEDICARE, MEDICAID ==
[~2022-12-14] VITALS: Ht 165.1 cm; Wt 83.5 kg
[2022-12-14] MEDS ORDERED: MAGNESIUM/ALUMINUM HYDROXIDE/SIMETHICONE 30ML UDC PO STA (11:37)
[2022-12-14] MEDS ORDERED: DICYCLOMINE 10 MG/5 ML ORAL SYR PO STA (11:37)
[2022-12-14] MEDS ORDERED: ONDANSETRON HCL 4MG/2ML INJ IV STA (11:37)
[2022-12-14] MEDS ORDERED: VISCOUS LIDOCAINE 2% 15 ML UDC PO STA (11:37)
[2022-12-14] MEDS ORDERED: SODIUM CHLORIDE 0.9% 1,000 ML IV ONE (11:45)
[2022-12-14 11:53] LABS: BASOPHILS % 0.5 % (0.0-2.0); EOSINOPHILS % 1.2 % (0.0-5.0); HEMATOCRIT. 41.3 % (36.0-48.0); LYMPHOCYTES % 15.5 % (20.0-50.0); MEAN CORPUSCULAR HEMOGLOBIN 30.5 pg (28.0-32.0); MEAN CORPUSCULAR VOLUME 89.9 fL (81.0-99.0); MEAN PLATELET VOLUME 8.9 fl (7.4-10.4); MONOCYTES % 5.7 % (2.0-8.0); NEUTROPHILS % 77.1 % (40.0-76.0); PLATELET 163 x1000/uL (130-400); RED BLOOD CELL COUNT 4.59 mill/uL (4.2-5.4); RED CELL DISTRIBUTION WIDTH 17.4 % (11.6-14.6)
[2022-12-14 11:57] LABS: CHLORIDE 94 mEq/L (98-107)
[2022-12-14] MEDS ORDERED: NITROGLYCERIN 0.4MG TABLET SL SL NR (14:30)
[2022-12-14] MEDS ORDERED: VISCOUS LIDOCAINE 2% 15 ML UDC PO NR (15:30)
[2022-12-14] MEDS ORDERED: DICYCLOMINE 10 MG/5 ML ORAL SYR PO NR (15:30)
[2022-12-14] MEDS ORDERED: MAGNESIUM/ALUMINUM HYDROXIDE/SIMETHICONE 30ML UDC PO NR (15:30)
[2022-12-14] MEDS ORDERED: PANTOPRAZOLE 40MG DR TABLET PO NR (15:45)
[2022-12-14] MEDS: SUCRALFATE 1G TABLET PO SCH ×2 (17:00→21:00)
[2022-12-14 19:00] VITALS: BP 145/84
[2022-12-14 20:00] VITALS: BP 114/42
[2022-12-14] MEDS ORDERED: MORPHINE SULFATE 2 MG/ML CPJ (NOT FOR IM USE) IV NR (20:30)
[2022-12-14] MEDS ORDERED: NALOXONE HCL 0.4MG/ML VIAL IV PRN (21:30)
[2022-12-15] VITALS (11 sets, daily range): BP systolic 109–144; BP diastolic 44–80
[2022-12-15 00:17] LABS: BASOPHILS % 0.4 % (0.0-2.0); EOSINOPHILS % 1.6 % (0.0-5.0); HEMATOCRIT. 35.7 % (36.0-48.0); HEMOGLOBIN. 11.9 g/dL (12.0-16.0); LYMPHOCYTES % 28.6 % (20.0-50.0); MEAN CORPUSCULAR VOLUME 89.9 fL (81.0-99.0); MEAN PLATELET VOLUME 8.5 fl (7.4-10.4); MONOCYTES % 6.7 % (2.0-8.0); NEUTROPHILS % 62.7 % (40.0-76.0); PLATELET 135 x1000/uL (130-400); RED BLOOD CELL COUNT 3.97 mill/uL (4.2-5.4); RED CELL DISTRIBUTION WIDTH 17.4 % (11.6-14.6)
[2022-12-15] MEDS: IPRATROPIUM BROMIDE (0.02%) 0.5MG/2.5ML NEB HHN SCH ×5 (03:08→21:00)
[2022-12-15] MEDS: ALBUTEROL (0.083%) 2.5MG/3ML NEB HHN SCH ×5 (03:12→21:00)
[2022-12-15] MEDS: HYDROCODONE/ACETAMINOPHEN 5/325MG TABLET PO PRN ×2 (03:38→16:16)
[2022-12-15] MEDS: SUCRALFATE 1G TABLET PO SCH ×4 (06:42→22:17)
[2022-12-15] MEDS ORDERED: CLOPIDOGREL 75MG TABLET PO SCH (09:00)
[2022-12-15] MEDS ORDERED: ASPIRIN 81MG EC TABLET PO SCH (09:00)
[2022-12-15] MEDS ORDERED: SACUBITRIL/VALSARTAN 49MG/51MG TABLET PO SCH (09:00)
[2022-12-15] MEDS: PREDNISONE 20MG TABLET PO SCH (09:06)
[2022-12-15] MEDS: PANTOPRAZOLE SODIUM 40 MG/VIAL IV SCH (09:07)
[2022-12-15] MEDS: AMLODIPINE 10MG TABLET PO SCH (09:08)
[2022-12-15] MEDS ORDERED: IPRATROPIUM/ALBUTEROL 0.5-3(2.5)MG/3ML NEB HHN SCH ×2 (20:00)
[2022-12-15] MEDS: GUAIFENESIN-DM 200MG-20MG/10ML UDC PO PRN (20:18)
[2022-12-15] MEDS: METHYLPREDNISOLONE SOD SUCC 40 MG/ML VIAL IV SCH (20:18)
[2022-12-15 20:31] LABS: HEPATITIS B SURFACE ANTIGEN NEGATIVE
[2022-12-16] VITALS: BP 132/66
[2022-12-16] MEDS: IPRATROPIUM BROMIDE (0.02%) 0.5MG/2.5ML NEB HHN SCH ×6 (01:12→21:03)
[2022-12-16] MEDS: ALBUTEROL (0.083%) 2.5MG/3ML NEB HHN SCH ×6 (01:12→21:03)
[2022-12-16 04:00] VITALS: BP 137/46
[2022-12-16] MEDS: METHYLPREDNISOLONE SOD SUCC 40 MG/ML VIAL IV SCH ×3 (04:34→21:29)
[2022-12-16] MEDS: SUCRALFATE 1G TABLET PO SCH ×4 (07:04→21:29)
[2022-12-16] MEDS: GUAIFENESIN-DM 200MG-20MG/10ML UDC PO PRN ×2 (07:38→12:09)
[2022-12-16 08:00] VITALS: BP 135/51
[2022-12-16] MEDS: HYDROCODONE/ACETAMINOPHEN 5/325MG TABLET PO PRN (08:00)
[2022-12-16] MEDS: PREDNISONE 20MG TABLET PO SCH (08:57)
[2022-12-16] MEDS: AMLODIPINE 10MG TABLET PO SCH (08:58)
[2022-12-16] MEDS: PANTOPRAZOLE SODIUM 40 MG/VIAL IV SCH (08:58)
[2022-12-16 12:15] VITALS: BP 126/53
[2022-12-16] MEDS: AZITHROMYCIN 250 MG TABLET PO SCH (14:47)
[2022-12-16 15:45] LABS: HEMATOCRIT. 36.2 % (36.0-48.0); HEMOGLOBIN. 11.9 g/dL (12.0-16.0); MEAN CORPUSCULAR HEMOGLOBIN 30.2 pg (28.0-32.0); MEAN CORPUSCULAR VOLUME 91.9 fL (81.0-99.0); PLATELET 117 x1000/uL (130-400); RED BLOOD CELL COUNT 3.94 mill/uL (4.2-5.4); RED CELL DISTRIBUTION WIDTH 17.5 % (11.6-14.6)
[2022-12-16 16:00] VITALS: BP 110/45
[2022-12-16] MEDS: MONTELUKAST SODIUM 10MG TABLET PO SCH (17:36)
[2022-12-16] MEDS: ASPIRIN 81MG TABLET PO SCH (17:36)
[2022-12-16] MEDS: CLOPIDOGREL 75MG TABLET PO SCH (17:37)
[2022-12-16 17:44] LABS: PLATELET ESTIMATE DECREASED
[2022-12-16 20:00] VITALS: BP 124/58
[2022-12-17] VITALS: BP 131/86
[2022-12-17] MEDS: IPRATROPIUM BROMIDE (0.02%) 0.5MG/2.5ML NEB HHN SCH ×7 (00:50→23:56)
[2022-12-17] MEDS: ALBUTEROL (0.083%) 2.5MG/3ML NEB HHN SCH ×7 (00:50→23:56)
[2022-12-17 04:00] VITALS: BP 129/63
[2022-12-17] MEDS: BENZONATATE 100MG CAPSULE PO PRN ×2 (04:16→14:41)
[2022-12-17] MEDS: METHYLPREDNISOLONE SOD SUCC 40 MG/ML VIAL IV SCH (04:16)
[2022-12-17] MEDS: OMEPRAZOLE 20MG CAPSULE EXTENDED RELEASE PO SCH (06:27)
[2022-12-17] MEDS: SUCRALFATE 1G TABLET PO SCH ×4 (06:27→20:57)
[2022-12-17] MEDS ORDERED: NA PHOS,M-B/NA PHOS,DI-BA ENEMA 118ML PR ONE (06:45)
[2022-12-17 06:56] LABS: HEMATOCRIT. 37.5 % (36.0-48.0); HEMOGLOBIN. 12.2 g/dL (12.0-16.0); MEAN CORPUSCULAR VOLUME 92.3 fL (81.0-99.0); MEAN PLATELET VOLUME 9.4 fl (7.4-10.4); PLATELET 117 x1000/uL (130-400); RED BLOOD CELL COUNT 4.06 mill/uL (4.2-5.4); RED CELL DISTRIBUTION WIDTH 17.6 % (11.6-14.6)
[2022-12-17 08:00] VITALS: BP 143/56
[2022-12-17] MEDS: DOCUSATE SODIUM 250MG CAPSULE PO SCH ×2 (09:00→17:00)
[2022-12-17] MEDS: ASPIRIN 81MG TABLET PO SCH ×2 (09:00→10:01)
[2022-12-17] MEDS: AMLODIPINE 10MG TABLET PO SCH (10:02)
[2022-12-17] MEDS: CLOPIDOGREL 75MG TABLET PO SCH (10:02)
[2022-12-17] MEDS: PREDNISONE 20MG TABLET PO SCH (10:02)
[2022-12-17] MEDS: AZITHROMYCIN 250 MG TABLET PO SCH (10:03)
[2022-12-17] MEDS ORDERED: DEXTROSE 50% WATER 50ML SYRINGE IV PRN (10:15)
[2022-12-17 12:02] VITALS: BP 150/51
[2022-12-17] MEDS: BLOOD SUGAR DIAGNOSTIC STRIP TEST SCH ×3 (13:00→20:42)
[2022-12-17] MEDS: INSULIN LISPRO 100 UNITS/ML SUBCUT SCH ×3 (13:47→20:42)
[2022-12-17] MEDS: HYDROCODONE/ACETAMINOPHEN 5/325MG TABLET PO PRN (13:57)
[2022-12-17 16:00] VITALS: BP 136/60
[2022-12-17] MEDS ORDERED: INSULIN GLARGINE 100 UNITS/ML SUBCUT NR (17:30)
[2022-12-17] MEDS: MONTELUKAST SODIUM 10MG TABLET PO SCH (18:39)
[2022-12-17 19:09] LABS: PLATELET ESTIMATE DECREASED
[2022-12-17 20:00] VITALS: BP 123/58
[2022-12-18] VITALS (18 sets, daily range): BP systolic 118–146; BP diastolic 44–70
[2022-12-18] MEDS: HYDROCODONE/ACETAMINOPHEN 5/325MG TABLET PO PRN (05:49)
[2022-12-18 06:16] LABS: HEMATOCRIT. 36.6 % (36.0-48.0); HEMOGLOBIN. 12.2 g/dL (12.0-16.0); MEAN CORPUSCULAR HEMOGLOBIN 30.1 pg (28.0-32.0); MEAN CORPUSCULAR VOLUME 90.6 fL (81.0-99.0); PLATELET 109 x1000/uL (130-400); RED BLOOD CELL COUNT 4.04 mill/uL (4.2-5.4); RED CELL DISTRIBUTION WIDTH 17.4 % (11.6-14.6)
[2022-12-18] MEDS: IPRATROPIUM BROMIDE (0.02%) 0.5MG/2.5ML NEB HHN SCH ×3 (07:48→16:34)
[2022-12-18] MEDS: BLOOD SUGAR DIAGNOSTIC STRIP TEST SCH ×3 (07:49→17:20)
[2022-12-18] MEDS: ALBUTEROL (0.083%) 2.5MG/3ML NEB HHN SCH ×3 (07:49→16:34)
[2022-12-18] MEDS: OMEPRAZOLE 20MG CAPSULE EXTENDED RELEASE PO SCH (08:17)
[2022-12-18] MEDS: SUCRALFATE 1G TABLET PO SCH ×3 (08:17→18:39)
[2022-12-18] MEDS: DOCUSATE SODIUM 250MG CAPSULE PO SCH ×2 (09:00→17:00)
[2022-12-18] MEDS: ASPIRIN 81MG TABLET PO SCH (09:00)
[2022-12-18] MEDS: AMLODIPINE 10MG TABLET PO SCH (09:00)
[2022-12-18] MEDS: INSULIN LISPRO 100 UNITS/ML SUBCUT SCH ×3 (09:01→18:40)
[2022-12-18] MEDS ORDERED: FAMOTIDINE 20MG/2ML VIAL IV NR (10:45)
[2022-12-18] MEDS ORDERED: CALCIUM CARBONATE 500MG TABLET CHEW PO PRN (11:00)
[2022-12-18] MEDS ORDERED: THROAT LOZENGES-BENZOCAINE/MENTH/CETYLPYRD CL LOZENGES MM PRN (11:00)
[2022-12-18] MEDS: MONTELUKAST SODIUM 10MG TABLET PO SCH (16:58)
[2022-12-18] MEDS: CLOPIDOGREL 75MG TABLET PO SCH (16:58)
[2022-12-18] MEDS: AZITHROMYCIN 250 MG TABLET PO SCH (16:58)
[2022-12-18] MEDS: PREDNISONE 20MG TABLET PO SCH (16:58)
[2022-12-18 20:48] LABS: PLATELET ESTIMATE DECREASED
[2022-12-21 04:10] LABS: OVA & PARASITE EXAM Final report (.)
== END 2022-12-18 19:45 | disposition home health service (06) | DRG 391 ==
LOC: ER 10:50 → 6EST 15:37 → ENRESERV 15:56
PROVIDERS: ADMIT Internal Medicine; ATTEND Internal Medicine
PROC: 5A1D70Z Performance of Urinary Filtration, Intermittent, Less than 6 Hours Per Day (ICD-10-PCS; principal; 2022-12-18)
DX: K52.9 Noninfective gastroenteritis and colitis, unspecified (principal); N18.6 End stage renal disease; I13.2 Hypertensive heart and chronic kidney disease with heart failure and with stage 5 chronic kidney disease, or end stage renal disease; E87.1 Hypo-osmolality and hyponatremia; I42.0 Dilated cardiomyopathy; K57.90 Diverticulosis of intestine, part unspecified, without perforation or abscess without bleeding; I27.20 Pulmonary hypertension, unspecified; I50.9 Heart failure, unspecified; E11.40 Type 2 diabetes mellitus with diabetic neuropathy, unspecified; E11.22 Type 2 diabetes mellitus with diabetic chronic kidney disease; E11.51 Type 2 diabetes mellitus with diabetic peripheral angiopathy without gangrene; E66.9 Obesity, unspecified; E78.5 Hyperlipidemia, unspecified; I27.21 Secondary pulmonary arterial hypertension; E11.621 Type 2 diabetes mellitus with foot ulcer; K43.9 Ventral hernia without obstruction or gangrene; I95.3 Hypotension of hemodialysis; Z20.822 Contact with and (suspected) exposure to COVID-19; J44.9 Chronic obstructive pulmonary disease, unspecified; L97.529 Non-pressure chronic ulcer of other part of left foot with unspecified severity; L97.519 Non-pressure chronic ulcer of other part of right foot with unspecified severity; I27.81 Cor pulmonale (chronic); I25.10 Atherosclerotic heart disease of native coronary artery without angina pectoris; D63.1 Anemia in chronic kidney disease; I45.10 Unspecified right bundle-branch block; G89.29 Other chronic pain; I80.3 Phlebitis and thrombophlebitis of lower extremities, unspecified; Z88.8 Allergy status to other drugs, medicaments and biological substances; Z99.81 Dependence on supplemental oxygen; Z99.2 Dependence on renal dialysis; Z79.899 Other long term (current) drug therapy; Z68.30 Body mass index [BMI] 30.0-30.9, adult; Z79.02 Long term (current) use of antithrombotics/antiplatelets; Z79.82 Long term (current) use of aspirin; Z87.11 Personal history of peptic ulcer disease; Z87.891 Personal history of nicotine dependence; Z88.6 Allergy status to analgesic agent; Z90.49 Acquired absence of other specified parts of digestive tract; Z95.5 Presence of coronary angioplasty implant and graft; Z99.3 Dependence on wheelchair; Z83.3 Family history of diabetes mellitus; Z82.49 Family history of ischemic heart disease and other diseases of the circulatory system
CPT/HCPCS: 36415; 71045; 74176; 80048; 80051; 80053; 80061; 82962; 83735; 84484; 85025; 86705; 86709; 86803; 87015; 87045; 87177; 87209; 87340; 87426; 87427; 87449; 87804; 89055; 90935; 93005; 93306; 93923; 94640; 97162; 99285; C9113; C9803; J1815; J2270; J2405; J2920; J7030; J7512

== ENCOUNTER 2022-12-30 09:16 | Inpatient (IN) | payer MEDICARE, MEDICAID ==
[2022-12-30] VITALS (10 sets, daily range): BP systolic 125–160; BP diastolic 66–88
[~2022-12-30] VITALS: Ht 165.1 cm; Wt 86.8 kg
[2022-12-30 12:20] LABS: BASOPHILS % 0.9 % (0.0-2.0); EOSINOPHILS % 0.4 % (0.0-5.0); HEMATOCRIT. 34.3 % (36.0-48.0); HEMOGLOBIN. 11.2 g/dL (12.0-16.0); LYMPHOCYTES % 10.6 % (20.0-50.0); MEAN CORPUSCULAR HEMOGLOBIN 29.4 pg (28.0-32.0); MEAN CORPUSCULAR VOLUME 89.9 fL (81.0-99.0); MEAN PLATELET VOLUME 8.4 fl (7.4-10.4); MONOCYTES % 4.9 % (2.0-8.0); NEUTROPHILS % 83.2 % (40.0-76.0); PLATELET 129 x1000/uL (130-400); RED BLOOD CELL COUNT 3.81 mill/uL (4.2-5.4); RED CELL DISTRIBUTION WIDTH 18.2 % (11.6-14.6)
[2022-12-30] MEDS ORDERED: HYDROCODONE/ACETAMINOPHEN 5/325MG TABLET PO ONE (12:30)
[2022-12-30 12:36] LABS: CHLORIDE 98 mEq/L (98-107)
[2022-12-30] MEDS ORDERED: SODIUM POLYSTYRENE SULFONATE 15 G/60 ML BOT PO ONE (12:45)
[2022-12-30] MEDS ORDERED: ONDANSETRON HCL 4MG/2ML INJ IV PRN (16:45)
[2022-12-30] MEDS ORDERED: ACETAMINOPHEN 325MG TABLET PO PRN (16:45)
[2022-12-30] MEDS ORDERED: IPRATROPIUM/ALBUTEROL 0.5-3(2.5)MG/3ML NEB HHN PRN (16:45)
[2022-12-30] MEDS: OXYCODONE HCL/ACETAMINOPHEN 5/325MG TABLET PO PRN (18:11)
[2022-12-30 19:37] LABS: HEPATITIS B SURFACE ANTIGEN NEGATIVE
[2022-12-30] MEDS ORDERED: DEXTROSE 50% WATER 50ML SYRINGE IV PRN (21:45)
[2022-12-30] MEDS: ALBUTEROL (0.083%) 2.5MG/3ML NEB HHN PRN (21:47)
[2022-12-30] MEDS: IPRATROPIUM BROMIDE (0.02%) 0.5MG/2.5ML NEB HHN PRN (21:47)
[2022-12-30] MEDS: BLOOD SUGAR DIAGNOSTIC STRIP TEST SCH (22:23)
[2022-12-30] MEDS: INSULIN LISPRO 100 UNITS/ML SUBCUT SCH (22:52)
[2022-12-31] VITALS (15 sets, daily range): BP systolic 117–168; BP diastolic 54–95
[2022-12-31] MEDS: OXYCODONE HCL/ACETAMINOPHEN 5/325MG TABLET PO PRN (03:46)
[2022-12-31] MEDS: IPRATROPIUM BROMIDE (0.02%) 0.5MG/2.5ML NEB HHN PRN ×2 (04:26→23:24)
[2022-12-31] MEDS: ALBUTEROL (0.083%) 2.5MG/3ML NEB HHN PRN ×2 (04:26→23:25)
[2022-12-31 05:50] LABS: BASOPHILS % 0.5 % (0.0-2.0); EOSINOPHILS % 0.6 % (0.0-5.0); HEMATOCRIT. 34.2 % (36.0-48.0); HEMOGLOBIN. 11.3 g/dL (12.0-16.0); LYMPHOCYTES % 22.5 % (20.0-50.0); MEAN CORPUSCULAR HEMOGLOBIN 29.6 pg (28.0-32.0); MEAN CORPUSCULAR VOLUME 89.5 fL (81.0-99.0); MEAN PLATELET VOLUME 8.2 fl (7.4-10.4); MONOCYTES % 6.8 % (2.0-8.0); NEUTROPHILS % 69.6 % (40.0-76.0); PLATELET 117 x1000/uL (130-400); RED BLOOD CELL COUNT 3.82 mill/uL (4.2-5.4); RED CELL DISTRIBUTION WIDTH 18.1 % (11.6-14.6)
[2022-12-31] MEDS: OMEPRAZOLE 20MG CAPSULE EXTENDED RELEASE PO SCH (06:21)
[2022-12-31] MEDS: BLOOD SUGAR DIAGNOSTIC STRIP TEST SCH ×4 (06:25→20:23)
[2022-12-31] MEDS ORDERED: INSULIN LISPRO 100 UNITS/ML SUBCUT SCH (07:20)
[2022-12-31] MEDS: INSULIN LISPRO 100 UNITS/ML SUBCUT SCH ×4 (07:20→20:23)
[2022-12-31] MEDS: FOLIC ACID/VITAMIN B COMP W-C TABLET PO SCH (08:47)
[2022-12-31] MEDS: AMLODIPINE 10MG TABLET PO SCH (08:48)
[2022-12-31] MEDS: SEVELAMER CARBONATE 800 MG TABLET PO SCH ×3 (08:54→17:16)
[2022-12-31] MEDS ORDERED: LEVO-65 PO (12:12)
[2022-12-31] MEDS ORDERED: HYDROCODONE/ACETAMINOPHEN 5/325MG TABLET PO PRN (23:15)
[2023-01-01] VITALS: BP 148/59
[2023-01-01] MEDS ORDERED: GUAIFENESIN-DM 200MG-20MG/10ML UDC PO PRN (01:45)
[2023-01-01 04:02] VITALS: BP 149/77
[2023-01-01] MEDS: OMEPRAZOLE 20MG CAPSULE EXTENDED RELEASE PO SCH (06:09)
[2023-01-01] MEDS: BLOOD SUGAR DIAGNOSTIC STRIP TEST SCH ×4 (06:09→20:39)
[2023-01-01] MEDS: INSULIN LISPRO 100 UNITS/ML SUBCUT SCH ×4 (07:20→20:39)
[2023-01-01 08:00] VITALS: BP 147/60
[2023-01-01] MEDS: FOLIC ACID/VITAMIN B COMP W-C TABLET PO SCH ×2 (08:53→08:58)
[2023-01-01] MEDS: SEVELAMER CARBONATE 800 MG TABLET PO SCH ×4 (08:53→16:57)
[2023-01-01] MEDS: AMLODIPINE 10MG TABLET PO SCH ×2 (08:53→08:58)
[2023-01-01 12:00] VITALS: BP 147/71
[2023-01-01 16:00] VITALS: BP 152/71
[2023-01-01 19:32] VITALS: BP 153/78
[2023-01-01] MEDS: IPRATROPIUM BROMIDE (0.02%) 0.5MG/2.5ML NEB HHN PRN (21:27)
[2023-01-01] MEDS: ALBUTEROL (0.083%) 2.5MG/3ML NEB HHN PRN (21:27)
[2023-01-02] VITALS (17 sets, daily range): BP systolic 97–151; BP diastolic 58–86
[2023-01-02] MEDS: OMEPRAZOLE 20MG CAPSULE EXTENDED RELEASE PO SCH (06:13)
[2023-01-02] MEDS: BLOOD SUGAR DIAGNOSTIC STRIP TEST SCH ×4 (06:13→20:59)
[2023-01-02] MEDS: SEVELAMER CARBONATE 800 MG TABLET PO SCH ×4 (08:19→17:00)
[2023-01-02] MEDS: FOLIC ACID/VITAMIN B COMP W-C TABLET PO SCH (08:19)
[2023-01-02] MEDS: INSULIN LISPRO 100 UNITS/ML SUBCUT SCH ×4 (08:19→20:59)
[2023-01-02] MEDS: AMLODIPINE 10MG TABLET PO SCH (09:00)
[2023-01-02] MEDS: ALBUTEROL (0.083%) 2.5MG/3ML NEB HHN PRN (21:06)
[2023-01-03] VITALS: BP 131/51
[2023-01-03 04:00] VITALS: BP 134/56
[2023-01-03] MEDS: OMEPRAZOLE 20MG CAPSULE EXTENDED RELEASE PO SCH (06:25)
[2023-01-03] MEDS: BLOOD SUGAR DIAGNOSTIC STRIP TEST SCH ×2 (06:25→11:50)
[2023-01-03 08:00] VITALS: BP 157/75
[2023-01-03] MEDS ORDERED: NALOXONE HCL 0.4MG/ML VIAL IV PRN (10:45)
[2023-01-03] MEDS: FOLIC ACID/VITAMIN B COMP W-C TABLET PO SCH (10:55)
[2023-01-03] MEDS: SEVELAMER CARBONATE 800 MG TABLET PO SCH ×2 (10:56→13:00)
[2023-01-03] MEDS: AMLODIPINE 10MG TABLET PO SCH (10:56)
[2023-01-03] MEDS: INSULIN LISPRO 100 UNITS/ML SUBCUT SCH ×2 (10:58→13:02)
[2023-01-03 12:00] VITALS: BP 144/60
[2023-01-03 15:22] VITALS: BP 140/61
== END 2023-01-03 16:22 | disposition hospice, home (50) | DRG 166 ==
LOC: ER 09:16 → MICUSO 13:41 → 3WST 15:43
PROVIDERS: ADMIT Internal Medicine; ATTEND Internal Medicine
PROC: 5A1D70Z Performance of Urinary Filtration, Intermittent, Less than 6 Hours Per Day (ICD-10-PCS; principal; 2022-12-30)
PROC: 0JBQ0ZZ Excision of Right Foot Subcutaneous Tissue and Fascia, Open Approach (ICD-10-PCS; 2022-12-31)
PROC: 0JBR0ZZ Excision of Left Foot Subcutaneous Tissue and Fascia, Open Approach (ICD-10-PCS; 2022-12-31)
PROC: 5A1D70Z Performance of Urinary Filtration, Intermittent, Less than 6 Hours Per Day (ICD-10-PCS; 2022-12-31)
PROC: 5A1D70Z Performance of Urinary Filtration, Intermittent, Less than 6 Hours Per Day (ICD-10-PCS; 2023-01-02)
DX: J96.20 Acute and chronic respiratory failure, unspecified whether with hypoxia or hypercapnia (principal); N18.6 End stage renal disease; I13.2 Hypertensive heart and chronic kidney disease with heart failure and with stage 5 chronic kidney disease, or end stage renal disease; F11.20 Opioid dependence, uncomplicated; E87.5 Hyperkalemia; E11.22 Type 2 diabetes mellitus with diabetic chronic kidney disease; J44.9 Chronic obstructive pulmonary disease, unspecified; E66.9 Obesity, unspecified; E11.51 Type 2 diabetes mellitus with diabetic peripheral angiopathy without gangrene; E11.40 Type 2 diabetes mellitus with diabetic neuropathy, unspecified; E78.5 Hyperlipidemia, unspecified; E11.621 Type 2 diabetes mellitus with foot ulcer; I25.10 Atherosclerotic heart disease of native coronary artery without angina pectoris; I95.3 Hypotension of hemodialysis; L97.529 Non-pressure chronic ulcer of other part of left foot with unspecified severity; L97.519 Non-pressure chronic ulcer of other part of right foot with unspecified severity; K43.9 Ventral hernia without obstruction or gangrene; I80.3 Phlebitis and thrombophlebitis of lower extremities, unspecified; I50.9 Heart failure, unspecified; D63.1 Anemia in chronic kidney disease; Z91.15 Patient's noncompliance with renal dialysis; Z99.2 Dependence on renal dialysis; Z59.82 Transportation insecurity; Z79.4 Long term (current) use of insulin; Z87.11 Personal history of peptic ulcer disease; Z98.61 Coronary angioplasty status; Z99.3 Dependence on wheelchair; Z79.899 Other long term (current) drug therapy; Z88.6 Allergy status to analgesic agent; Z99.81 Dependence on supplemental oxygen; Z88.8 Allergy status to other drugs, medicaments and biological substances; Z68.31 Body mass index [BMI] 31.0-31.9, adult; Z83.3 Family history of diabetes mellitus; Z82.49 Family history of ischemic heart disease and other diseases of the circulatory system; Z51.5 Encounter for palliative care
CPT/HCPCS: 36415; 71045; 80048; 80053; 80061; 82962; 83036; 84484; 85025; 86705; 86709; 86803; 87340; 90935; 93005; 94640; 99291; C1893; J1815